=== PATIENT | female | born 1960 | race Caucasian/White ===

== ENCOUNTER 2020-06-26 14:29 | Outpatient (CLI) | payer MEDICARE, SELFPAY ==
--- NOTE | ~2020-06-26 | MM_ITS ---
EXAMINATION: MM screening [facility] BI w christal HISTORY: Screening mammogram TECHNIQUE: Craniocaudal and mediolateral oblique 3-D tomosynthesis images were obtained and synthetic 2-D images were generated. CAD analysis was submitted and interpreted. COMPARISON: 05/17/2019, 08/26/2017, 05/30/2016 bilateral digital screening mammogram examinations BREAST PARENCHYMAL COMPOSITION: The breasts are almost entirely fatty. FINDINGS: There is no evidence of suspicious mass, calcification, or architectural distortion to sugg est malignancy in either breast. There has been no suspicious interval change. IMPRESSION: 1. No mammographic evidence of malignancy. 2. Recommend routine screening mammography in one year. BI-RADS Category 1: Negative Reviewed, dictated and finalized at location B.
== END 2020-06-26 14:30 | disposition home or self-care (01) ==
LOC: ANHIMG 14:32
PROVIDERS: PCP Family Medicine; Visit Provider Family Medicine
DX: Z12.31 Encounter for screening mammogram for malignant neoplasm of breast (principal)
CPT/HCPCS: 77063; 77067

== ENCOUNTER 2020-10-08 00:47 | Outpatient (CLI) | payer MEDICARE, SELFPAY ==
[2020-10-08 19:06] LABS: SARS-CoV-2 RNA PCR Negative
== END 2020-10-08 00:48 | disposition home or self-care (01) ==
LOC: ANHCOVIDDT 00:47
PROVIDERS: PCP Physician Assistant; Visit Provider Internal Medicine Critical Care Medicine
DX: Z20.822 Contact with and (suspected) exposure to COVID-19 (principal)
CPT/HCPCS: C9803; U0003

== ENCOUNTER 2020-10-10 08:40 | Outpatient (CLI) | payer MEDICARE, SELFPAY ==
--- NOTE | 2020-10-29 10:42 | WPDSLEEPSTUD ---
Sleep Study Date of Study: 10/10/20 Ordering Provider: Reese Ceron PA-C Interpreting Physician: Jailyn Rios MD Sleep Study Type: CPAP Titration Height: 1.63 m Weight: 120.202 kg Body Mass Index: 45.4 Neck Circumference: 38.1 cm [place]: 4 Reason for Sleep Study GENEVA, on CPAP, increased symptoms; presents for retitration Prior sleep studies: * October 23, 2011; CPAP titration optimal pressure 11 cm * October 13, 2011; overnight polysomnogram wwith mild obstructive sleep apnea, AHI 12.8 with evidence of REM predominant and supine predominant events, moderate to heavy snoring, oxygen desaturation to 73%. Sleep History Amberly Thomas is a 60 yo female with obstructive sleep apnea, on CPAP For the last several years. She has good compliance. Her AHI is low, she reports that is 1.7 on her CPAP screen. She rarely awakens at night with heartburn, belching or coughing. She does not awaken from sleep feeling short of breath. She occasionally has trouble sleeping with a cold. She never wakes up gasping for breath at night while wearing CPAP. She occasionally has breathing problems at night observed by others, occasionally sweats excessively at night and occasionally notices her heart pounding or beating irregularly night. She never falls asleep during the day, involuntarily, while driving or while exerting physical effort. She does not have loss of muscle tone with strong emotion. She does not have difficulty during the daytime due to Excessive daytime sleepiness. She is disabled. She does not feel paralyzed when waking or falling asleep. She occasionally has vivid dreamlike scenes upon awakening or falling asleep. She is never a freight to go to sleep. She rarely has nightmares. She frequently remembers her dreams, frequently has racing thoughts, occasionally has feelings of sadness depression and anxiety. She rarely has muscular tension or notice parts of her body jerking. She never kicks at night. She rarely has probably aching feelings in her legs. She occasionally has leg pain during the night. She rarely has morning jaw pain. She rarely grinds her teeth during sleep. She constantly is bothered by pain during the day, occasionally awakens with pain at night. She constantly wakes up feeling stiff in the morning with sore achy muscles and pain in the neck and spine. She takes sedatives. Normal bedtime is 1:00 a.m. falling asleep within 30 minutes but sometimes it takes up to 2 hours to fall asleep. She typically wakes during the night 2-4 times to use the bathroom. She stays awake between 15 minutes and 2 hours. She wakes the morning between 9 and 10:00 a.m.. Weekend schedule is the same. She does not take naps. She feels better in the afternoon compared to other times of day. Habits: quit tobacco 4 months ago. Caffeine 2 cups in the morning. Alcohol 4 times year. [facility] Past Medical History Medical History (Updated 10/29/20 @ 11:20 by Jailyn Rios MD) Chronic back pain COPD (chronic obstructive pulmonary disease) MATT (generalized anxiety disorder) GERD (gastroesophageal reflux disease) Hyperlipidemia Hypertension Obstructive sleep apnea Psoriasis Psoriatic arthritis Type 2 diabetes mellitus with hyperglycemia Surgical History Surgical History History of hip replacement, total History of knee replacement Family History Family History Mother Family history of thyroid disease Diabetes mellitus Hypertension Family history of cardiovascular disease Acute myocardial infarction Cerebrovascular accident Family history of arthritis Grandparent Family history of eczema Family history of psoriasis Father Patient's father is Family history of lymphoma Other Family history of alcoholism Family history of malignant neoplasm Family history of osteoarthritis Social History Soc
[2020-10-29 11:33] VITALS: BMI 45.4
== END 2020-10-10 08:41 | disposition home or self-care (01) ==
LOC: ANHCSM 08:41
PROVIDERS: PCP Physician Assistant; Visit Provider Physician Assistant
DX: G47.33 Obstructive sleep apnea (adult) (pediatric) (principal); Z99.89 Dependence on other enabling machines and devices
CPT/HCPCS: 95811

== ENCOUNTER 2021-07-01 15:10 | Outpatient (CLI) | payer MEDICARE, SELFPAY ==
--- NOTE | ~2021-07-01 | MM_ITS ---
EXAMINATION: MM screening [facility] BI w christal HISTORY: Screening mammogram TECHNIQUE: Craniocaudal and mediolateral oblique 3-D tomosynthesis images were obtained and synthetic 2-D images were generated. CAD analysis was submitted and interpreted. COMPARISON: 06/26/2020, 05/17/2019, 08/26/2017 BREAST PARENCHYMAL COMPOSITION: The breasts are almost entirely fatty. FINDINGS: There is no evidence of suspicious mass, calcification, or architectural distortion to sugg est malignancy in either breast. There has been no suspicious interval change. IMPRESSION: 1. No mammographic evidence of malignancy. 2. Recommend routine screening mammography in one year. BI-RADS Category 1: Negative Reviewed, dictated and finalized at location A.
== END 2021-07-01 15:11 | disposition home or self-care (01) ==
LOC: ANHIMG 15:11
PROVIDERS: PCP Family Medicine; Visit Provider Family Medicine
DX: Z12.31 Encounter for screening mammogram for malignant neoplasm of breast (principal)
CPT/HCPCS: 77063; 77067

== ENCOUNTER 2022-01-15 14:41 | Outpatient (CLI) | payer MEDICARE, SELFPAY ==
--- NOTE | ~2022-01-15 | DEXA_ITS ---
Bone Density Report Name: VIRAL VÁZQUEZ Age: 61 Sex: Female Ethnicity: White Date of : 1960 Indication: postmenopausal; screening for osteoporosis; height loss; Referring Provider: GIOVANNI NARAYAN Study: Bone densitometry was performed. Exam Date: January 15, 2022 Accession number: [id number] Bone Density: Region BMD T-score Z-score Classification AP Spine(L1-L4) 0.964 -0.8 0.9 Normal Femoral Neck (Left) 0.846 0.0 1.4 Normal Total Hip (Left) 0.875 -0.5 0.6 Normal World Health Organization criteria for BMD impression classify patients as: Normal (T-score at or above -1.0), Osteopenia (T-score between -1.0 and -2.5), or Osteoporosis (T-score at or below -2.5). 10-year Fracture Risk: FRAX not reported because: All T-scores for Spine Total, Hip Total, Femoral Neck at or above -1.0 Clinical Information Provided by Patient: Has used the following medications: Vitamin D Patient maximum height was 64 Menopause Age: 51 No regular weight bearing exercise Onset of menses at age 11 Number of children 2 Impression: The patient has normal bone mass. Discussion: BONE DENSITY IS ABOVE THE MINIMUM DESIRABLE LEVEL AT ALL SKELETAL SITES TESTED. This patient?s bone mineral density is above the minimum desirable level (T-score -1.0 or better) at all sites measured. The patient should follow a healthful lifestyle (good nutrition with adequate calcium and vitamin D, and appropriate weight-bearing exercise). Follow-Up: Consider repeating this study in 5 years or sooner if there is some new clinical indication. Reported by: JENY on 01/15/2022 3:00:00 PM. Reviewed, dictated and finalized at location Rob PARKER
== END 2022-01-15 14:42 | disposition home or self-care (01) ==
LOC: ANHIMG 14:42
PROVIDERS: PCP Family Medicine; Visit Provider Physician Assistant
DX: Z78.0 Asymptomatic menopausal state (principal)
CPT/HCPCS: 77080

== ENCOUNTER 2022-06-23 00:32 | Day surgery (SDC) | payer MEDICARE, SELFPAY ==
[2022-06-05 13:04] VITALS: BMI 51.5
[2022-06-23 06:26] VITALS: BP 162/69; PULSE 68; RESP 17; TEMP 35.9; O2SAT 99; BMI 48.5
[2022-06-23] MEDS: LACTATED RINGERS 1,000 ML 150 ML IV CONT (06:37)
--- NOTE | 2022-06-23 06:39 | WPDANESEPPF ---
Anes - Initial Pre Proc Eval Procedure: Operation Date: 06/23/22 07:30 Proposed Procedures p Screening Colonoscopy - Nii Martins MD Date/Time: 06/23/22 06:39 Surgeon: Nii Martins MD Pre Op Diagnosis: hx of colon polyps Patient Data Age: 62 Gender: F Height: 1.6 m Weight: 124.3 kg Last Vital Signs Temp 35.9 C L 06/23/22 06:26 Pulse 68 06/23/22 06:26 Resp 17 06/23/22 06:26 BP 162/69 H 06/23/22 06:26 Pulse Ox 99 06/23/22 06:26 O2 Del Method Room Air 06/23/22 06:26 Allergies Allergy/AdvReac Type Severity Reaction Status Date / Time ibuprofen Allergy Severe exaccerbates Verified 06/23/22 06:22 psoriasis flurbiprofen Allergy Unknown ULCER Verified 06/23/22 06:22 NSAIDS (Non-Steroidal Allergy Unknown Unknown Verified 06/23/22 06:22 Anti-Inflamma Penicillins Allergy Unknown Unknown Verified 06/23/22 06:22 Home Medications Medication Instructions Recorded Confirmed Type betamethasone dipropionate 0.05 % 1 applic topical DAILY 08/24/19 06/23/22 History topical cream calcipotriene 0.005 % topical cream 1 applic topical BID 08/24/19 06/23/22 History clobetasol 0.05 % scalp solution 1 applic topical QAM AND QPM 08/24/19 06/23/22 History apple cider vinegar 300 mg tablet 300 mg PO DAILY 08/30/19 06/23/22 History glucosamine-chondroitin 250 mg-200 2 tablet PO DAILY 08/30/19 06/23/22 History mg tablet (Osteo Bi-Flex) multivitamin (Daily Multi-Vitamin 1 tablet PO DAILY 08/30/19 06/23/22 History tablet) folic acid 1 mg tablet 1 mg PO DAILY 03/22/21 06/23/22 History ezetimibe 10 mg tablet 10 mg PO DAILY #90 tabs 05/15/21 06/23/22 Rx guselkumab 100 mg/mL subcutaneous 100 mg subcut DIRECTED 09/04/21 06/23/22 History auto-injector (Tremfya) methotrexate sodium 2.5 mg tablet 15 mg PO WEEKLY 09/04/21 06/23/22 History metformin 500 mg tablet,extended 2,000 mg PO DAILY #360 tabs 12/26/21 06/23/22 Rx release 24 hr montelukast 10 mg tablet 10 mg PO DAILY #90 tabs 02/11/22 06/23/22 Rx simvastatin 40 mg tablet 40 mg PO DAILY #90 tabs 02/11/22 06/23/22 Rx lancets 30 gauge (2-In-1 Lancet #200 ea 03/10/22 06/23/22 Rx Device) blood sugar diagnostic (Blood #100 ea 03/11/22 06/23/22 Rx Glucose Test strips) blood-glucose meter (Smart Medical Systemsuch #1 ea 03/11/22 06/23/22 Rx Ultra2 Meter kit) lorazepam 0.5 mg tablet 0.5 mg PO Q8H PRN anxiety #60 tabs 04/22/22 06/23/22 Rx baclofen 10 mg tablet See Rx Instructions PO TID PRN 05/05/22 06/23/22 Rx muscle spasm #270 tabs esomeprazole magnesium 40 mg 40 mg PO BID #60 caps 05/12/22 06/23/22 Rx capsule,delayed release (Nexium) hydrocodone 7.5 mg-acetaminophen 1 tablet PO Q6H PRN pain #120 tabs 06/12/22 06/23/22 Rx 325 mg tablet Patient hx anesthesia problems: none Family hx anesthesia problems: none Results Review: All pre-operative results and documents have been reviewed as part of the pre-operative evaluation. [facility] Past Medical History Medical History Chronic back pain COPD (chronic obstructive pulmonary disease) MATT (generalized anxiety disorder) GERD (gastroesophageal reflux disease) Hyperlipidemia Hypertension Low back pain Obstructive sleep apnea Psoriasis Psoriatic arthritis Type 2 diabetes mellitus with hyperglycemia Surgical History Surgical History History of hip replacement, total History of knee replacement Family History Family History Mother Family history of thyroid disease Diabetes mellitus Hypertension Family history of cardiovascular disease Acute myocardial infarction Cerebrovascular accident Family history of arthritis Grandparent Family history of eczema Family history of psoriasis Father Patient's father is Family history of lymphoma Other Family history of alcoholism Family
[2022-06-23 06:46] LABS: Glucose Point of Care 124 mg/dl (65-105)
--- NOTE | 2022-06-23 07:26 | PM.HPGS ---
History of Present Illness History of Present Illness Consent: Risks, benefits, and alternatives have been discussed and questions answered. Patient agrees to proceed with procedure. Chief complaint: hx of colon polyps Narrative: Amberly Thomas is a 62 year old female with colon polyps 3 years ago Review of Systems Constitutional: Constitutional: Denies headache(s) and Denies weakness Eyes: Eyes: Denies blurry vision ENT: Reports Normal hearing present, Denies headache(s) and Denies neck pain Cardiovascular: Cardiovascular: Denies chest pain and Denies dyspnea Respiratory: Respiratory: Denies dyspnea Gastrointestinal: Gastrointestinal: Reports no additional gastrointestinal complaints Genitourinary: Genitourinary: Denies dysuria Musculoskeletal: Musculoskeletal: Denies neck pain Integumentary/Breasts: Skin/Breast: Denies dry skin Neurologic: Reports Normal hearing present, Denies headache(s) and Denies weakness Psychiatric: Psychiatric: Denies anxiety Endocrine: Endocrine: Denies change in body appearance Hematologic/Lymphatic: Hematologic/Lymphatic: Denies easy bleeding Allergic/Immunologic: Allergic/Immunologic: Denies urticaria PMFSH Past Medical History Medical History Chronic back pain COPD (chronic obstructive pulmonary disease) MATT (generalized anxiety disorder) GERD (gastroesophageal reflux disease) Hyperlipidemia Hypertension Low back pain Obstructive sleep apnea Psoriasis Psoriatic arthritis Type 2 diabetes mellitus with hyperglycemia Surgical History Surgical History History of hip replacement, total History of knee replacement Family History Family History Mother Family history of thyroid disease Diabetes mellitus Hypertension Family history of cardiovascular disease Acute myocardial infarction Cerebrovascular accident Family history of arthritis Grandparent Family history of eczema Family history of psoriasis Father Patient's father is Family history of lymphoma Other Family history of alcoholism Family history of malignant neoplasm Family history of osteoarthritis Social History Social History Years smoked: 45 Smoking status: Former smoker Tobacco type: cigarettes Second hand tobacco smoke exposure: No Alcohol intake: current Alcohol use details: occasionally Substance use: never Substance use type: does not use Living arrangements: with family Gender identity (if verbalized by the patient): Female Spiritual care concerns: No Meds Home Medications and Allergies Home Medications Medication Instructions Recorded Confirmed Type betamethasone dipropionate 0.05 % 1 applic topical DAILY 08/24/19 06/23/22 History topical cream calcipotriene 0.005 % topical cream 1 applic topical BID 08/24/19 06/23/22 History clobetasol 0.05 % scalp solution 1 applic topical QAM AND QPM 08/24/19 06/23/22 History apple cider vinegar 300 mg tablet 300 mg PO DAILY 08/30/19 06/23/22 History glucosamine-chondroitin 250 mg-200 2 tablet PO DAILY 08/30/19 06/23/22 History mg tablet (Osteo Bi-Flex) multivitamin (Daily Multi-Vitamin 1 tablet PO DAILY 08/30/19 06/23/22 History tablet) folic acid 1 mg tablet 1 mg PO DAILY 03/22/21 06/23/22 History ezetimibe 10 mg tablet 10 mg PO DAILY #90 tabs 05/15/21 06/23/22 Rx guselkumab 100 mg/mL subcutaneous 100 mg subcut DIRECTED 09/04/21 06/23/22 History auto-injector (Tremfya) methotrexate sodium 2.5 mg tablet 15 mg PO WEEKLY 09/04/21 06/23/22 History metformin 500 mg tablet,extended 2,000 mg PO DAILY #360 tabs 12/26/21 06/23/22 Rx release 24 hr montelukast 10 mg tablet 10 mg PO DAILY #90 tabs 02/11/22 06/23/22 Rx simvastatin 40 mg tablet 40 mg PO DAILY #90 tabs 02/11/22
[2022-06-23 08:01] VITALS: BP 115/64; PULSE 58; RESP 20; O2SAT 94
[2022-06-23 08:11] VITALS: BP 106/50; PULSE 59; RESP 25; O2SAT 100
[2022-06-23 08:21] VITALS: BP 111/69; PULSE 63; RESP 26; O2SAT 100
== END 2022-06-23 08:41 | disposition home or self-care (01) ==
PROVIDERS: PCP Family Medicine; Visit Provider Internal Medicine Gastroenterology
PROC: 0DJD8ZZ Inspection of Lower Intestinal Tract, Via Natural or Artificial Opening Endoscopic (ICD-10-PCS; CPT 45378; principal; 2022-06-23 07:30)
DX: Z12.11 Encounter for screening for malignant neoplasm of colon (principal); K63.5 Polyp of colon; K57.30 Diverticulosis of large intestine without perforation or abscess without bleeding; J44.9 Chronic obstructive pulmonary disease, unspecified; F41.1 Generalized anxiety disorder; I10 Essential (primary) hypertension; E78.5 Hyperlipidemia, unspecified; G47.33 Obstructive sleep apnea (adult) (pediatric); E11.9 Type 2 diabetes mellitus without complications; L40.50 Arthropathic psoriasis, unspecified; Z87.891 Personal history of nicotine dependence; Z79.84 Long term (current) use of oral hypoglycemic drugs; E66.01 Morbid (severe) obesity due to excess calories; Z68.42 Body mass index [BMI] 45.0-49.9, adult
CPT/HCPCS: 45385; 82948; 88305; J2704; J7120

== ENCOUNTER 2022-07-30 10:40 | Outpatient (CLI) | payer MEDICARE, SELFPAY ==
--- NOTE | ~2022-07-30 | MM_ITS ---
EXAMINATION: MM screening ericka BI w christal HISTORY: Screening TECHNIQUE: Craniocaudal and mediolateral oblique 3-D tomosynthesis images were obtained and synthetic 2-D images were generated. CAD analysis was submitted and interpreted. COMPARISON: Comparison to multiple prior studies sequentially, with oldest reviewed study dated 06/29. BREAST PARENCHYMAL COMPOSITION: The breasts are almost entirely fatty. FINDINGS: There is no evidence of suspicious mass, calcification, or architectural distortion to sugg est malignancy in either breast. There has been no suspicious interval change. IMPRESSION: 1. No mammographic evidence of malignancy. 2. Recommend routine screening mammography in one year. BI-RADS Category 1: Negative Reviewed, dictated and finalized at location A.
== END 2022-07-30 10:41 | disposition home or self-care (01) ==
PROVIDERS: PCP Family Medicine; Visit Provider Family Medicine
DX: Z12.31 Encounter for screening mammogram for malignant neoplasm of breast (principal)
CPT/HCPCS: 77063; 77067

== ENCOUNTER 2022-12-09 15:13 | Outpatient (CLI) | payer MEDICARE, SELFPAY ==
--- NOTE | ~2022-12-09 | XR_ITS ---
Lumbosacral Spine: AP, oblique, and lateral views Clinical History: Pain Findings: The normal lordotic curve is maintained. No fracture or subluxation evident. There is mild degenerative disc change at L3-L4 and L4-L5. Facet arthropathy present from L3 through S1. The sacroi liac joints are normally outlined. Impression: Mild degenerative spondylosis, as above. Reviewed, dictated and finalized at location . Impression: Mild degenerative spondylosis, as above.
[2022-12-09 15:56] LABS: Anion Gap 10 mmol/L (8-16); Blood Urea Nitrogen 14 mg/dL (7-18); Calcium 9.4 mg/dL (8.5-10.1); Carbon Dioxide 28 mmol/L (21-32); Chloride 104 mmol/L (98-108); Estimated Glomerular Filt Rate > 60; Glucose 140 mg/dL (70-99); Osmolality Calculated 296 mOsm/kg (285-295); Potassium 5.1 mmol/L (3.5-5.1); Sodium 142 mmol/L (136-145)
== END 2022-12-09 15:14 | disposition home or self-care (01) ==
LOC: CHSLAB 15:16
PROVIDERS: PCP Family Medicine; Visit Provider Anesthesiology
DX: Z01.818 Encounter for other preprocedural examination (principal); M54.50 Low back pain, unspecified; E11.65 Type 2 diabetes mellitus with hyperglycemia; M43.06 Spondylolysis, lumbar region
CPT/HCPCS: 36415; 72110; 80048

== ENCOUNTER 2022-12-22 00:33 | Day surgery (SDC) | payer MEDICARE, SELFPAY ==
[2022-12-08 13:15] VITALS: BMI 46.0
--- NOTE | 2022-12-08 13:20 | PC.NURSE ---
Report to the Outpatient Waiting Room, entrance under the green pavilion located off [facility], at time 12:00 on date 12/22/22. Planned Procedure Time: 2:00. Time changes happen often and if your time is changed the preop area will call you the afternoon before. - You and your visitor will be asked to self-screen and do not enter if you have any COVID symptoms. - Only one visitor is requested with a max of two and NO children visitors are allowed at this time. - The patient visitor may be requested to leave or wait in car when not with patient due to distancing restrictions. - A mask is optional within the hospital at this time. Patients may have clear liquids (water, carbonated beverages, clear teas, apple juice) until 3 hours prior to surgery with a maximum of 20 ounces. - No food from midnight until time of surgery Take the following medications with a SIP of water the morning of surgery: LORAZEPAM, PAIN PILL IF NEEDED DO NOT STOP ANY OF YOUR OTHER PRESCRIPTION MEDICATIONS PRIOR TO SURGERY?EXCEPT THE FOLLOWING Medications to discontinue per physician: VITAMINS/SUPPLEMENTS Date to take last dose: 12/18/22 Please no make-up, nail [place], hairspray, perfume, deodorant, or body powder the day of surgery. No jewelry (including any body piercings) or valuables the day of surgery, leave them at home. Please take a shower or bath the night before, or the morning of, surgery with an antibacterial soap. Wear comfortable, loose fitting clothing. - Jewelry must be removed prior to entering the operating room. Rings and piercings that are not removed may be cut off. - The hospital will not accept responsibility for valuables. - Please leave all valuables, including medications, at home the day of surgery. If you are going home after surgery, a licensed auto [place] driver must drive you home. - NO public transportation without another adult if you receive anesthesia. - We recommend that an adult stay with you for 24 hours following discharge. - We also recommend that you do not drive, make important decision, drink alcoholic beverages, or take any drugs that were not prescribed by your health care provider for at least 24 hours after your discharge time. Follow any additional instructions given to you from your surgeon. If you or anyone in your household have experienced Covid symptoms in the past week, please notify your surgeon or the nurse liaison at the phone number below for possible testing. Telephone instructions given to ADENIKE VÁZQUEZ and asked if any additional questions and then verbalized understanding. Patient advised to call surgeon office or pre surgery nurse liaison [phone] if any additional questions.
--- NOTE | 2022-12-20 13:27 | PM.IMHP ---
H&P: HPI History of Present Illness Date/Time: 12/20/22 13:27 Chief Complaint: VICKEY Narrative: stress incontinence due to ISD. Has OAB as well. Desires surgical correction for VICKEY/ISD Review of Systems Review of Systems: All systems reviewed & are unremarkable except as noted in HPI and below PMFSH Past Medical History Medical History Chronic back pain COPD (chronic obstructive pulmonary disease) MATT (generalized anxiety disorder) GERD (gastroesophageal reflux disease) Hyperlipidemia Hypertension Low back pain Obstructive sleep apnea Psoriasis Psoriatic arthritis Tobacco abuse Type 2 diabetes mellitus with hyperglycemia Urinary incontinence Surgical History Surgical History History of hip replacement, total History of knee replacement Family History Family History Mother Family history of thyroid disease Diabetes mellitus Hypertension Family history of cardiovascular disease Acute myocardial infarction Cerebrovascular accident Family history of arthritis Grandparent Family history of eczema Family history of psoriasis Father Patient's father is Family history of lymphoma Other Family history of alcoholism Family history of malignant neoplasm Family history of osteoarthritis Social History Social History Smoking packs per day: 1 Smoking cigarettes per day: 20.0 Years smoked: 50 Smoking pack-years: 50.00 Smoking status: Former smoker Tobacco type: cigarettes Second hand tobacco smoke exposure: No Smoking end date: 09/28/17 Alcohol intake: current Alcohol use details: 1/MONTH Substance use: never Substance use type: does not use Lack of Transportation: No Lack of Food: Never True Current Housing: I Have Housing Concerned About Future Housing: No Difficulty Paying Gas/Electric Bills: No Difficulty Paying for Meds: No Currently Unemployed: No Education: High School Diploma/GED Difficulty w/ Childcare or Family Care: No Living arrangements: with family Occupation/Education: retired Gender identity (if verbalized by the patient): Female Sexual Orientation (if Verbalized by the Patient): Straight or Heterosexual Spiritual care concerns: No Agree to blood products: Yes Meds Home Medications and Allergies Home Medications Medication Instructions Recorded Confirmed Type betamethasone dipropionate 0.05 % 1 applic topical DAILY 08/24/19 12/08/22 History topical cream calcipotriene 0.005 % topical cream 1 applic topical BID 08/24/19 12/08/22 History clobetasol 0.05 % scalp solution 1 applic topical QAM AND QPM 08/24/19 12/08/22 History apple cider vinegar 300 mg tablet 300 mg PO DAILY 08/30/19 12/08/22 History glucosamine-chondroitin 250 mg-200 2 tablet PO DAILY 08/30/19 12/08/22 History mg tablet (Osteo Bi-Flex) multivitamin (Daily Multi-Vitamin 1 tablet PO DAILY 08/30/19 12/08/22 History tablet) folic acid 1 mg tablet 1 mg PO DAILY 03/22/21 12/08/22 History guselkumab 100 mg/mL subcutaneous 100 mg subcut DIRECTED 09/04/21 12/08/22 History auto-injector (Tremfya) methotrexate sodium 2.5 mg tablet 15 mg PO WEEKLY 09/04/21 12/08/22 History metformin 500 mg tablet,extended 2,000 mg PO DAILY #360 tabs 12/26/21 12/08/22 Rx release 24 hr montelukast 10 mg tablet 10 mg PO DAILY #90 tabs 02/11/22 12/08/22 Rx simvastatin 40 mg tablet 40 mg PO DAILY #90 tabs 02/11/22 12/08/22 Rx lancets 30 gauge (2-In-1 Lancet #200 ea 03/10/22 07/24/22 Rx Device) blood sugar diagnostic (Blood #100 ea 03/11/22 07/24/22 Rx Glucose Test strips) blood-glucose meter (OneTouch #1 ea 03/11/22 07/24/22 Rx Ultra2 Meter kit) furosemide 20 mg tablet 20 mg PO QAM PRN edema #30 tabs 07/18/22 12/08/22 Rx mupiroci
--- NOTE | 2022-12-22 07:14 | WPDHPUPDATE1 ---
History and Physical Update Update Date/Time: 12/22/22 07:14 History and Physical has been reviewed, including an updated exam of the patient. There are NO changes in the patient's condition. Risks, benefits, and alternatives have been discussed and questions answered. Patient agrees to proceed with procedure.
--- NOTE | 2022-12-22 07:53 | WPDANESEPPF ---
Anes - Initial Pre Proc Eval Procedure: Operation Date: 12/22/22 14:00 Proposed Procedures p Cystoscopy with Bulking Agent - Jeff Moon MD Date/Time: 12/22/22 07:53 Surgeon: Jeff Moon MD Pre Op Diagnosis: Intrinsic Sphincter Def Patient Data Age: 62 Gender: F Height: 1.6 m Weight: 117.95 kg Allergies Allergy/AdvReac Type Severity Reaction Status Date / Time ibuprofen Allergy Severe exaccerbates Verified 12/22/22 11:46 psoriasis flurbiprofen Allergy Unknown ULCER Verified 12/22/22 11:46 NSAIDS (Non-Steroidal Allergy Unknown Unknown Verified 12/22/22 11:46 Anti-Inflamma Penicillins Allergy Unknown Unknown Verified 12/22/22 11:46 Home Medications Medication Instructions Recorded Confirmed Type betamethasone dipropionate 0.05 % 1 applic topical DAILY 08/24/19 12/22/22 History topical cream calcipotriene 0.005 % topical cream 1 applic topical BID 08/24/19 12/22/22 History clobetasol 0.05 % scalp solution 1 applic topical QAM AND QPM 08/24/19 12/22/22 History apple cider vinegar 300 mg tablet 300 mg PO DAILY 08/30/19 12/22/22 History glucosamine-chondroitin 250 mg-200 2 tablet PO DAILY 08/30/19 12/22/22 History mg tablet (Osteo Bi-Flex) multivitamin (Daily Multi-Vitamin 1 tablet PO DAILY 08/30/19 12/22/22 History tablet) folic acid 1 mg tablet 1 mg PO DAILY 03/22/21 12/22/22 History guselkumab 100 mg/mL subcutaneous 100 mg subcut DIRECTED 09/04/21 12/22/22 History auto-injector (Tremfya) methotrexate sodium 2.5 mg tablet 15 mg PO WEEKLY 09/04/21 12/22/22 History metformin 500 mg tablet,extended 2,000 mg PO DAILY #360 tabs 12/26/21 12/22/22 Rx release 24 hr montelukast 10 mg tablet 10 mg PO DAILY #90 tabs 02/11/22 12/22/22 Rx simvastatin 40 mg tablet 40 mg PO DAILY #90 tabs 02/11/22 12/22/22 Rx lancets 30 gauge (2-In-1 Lancet #200 ea 03/10/22 12/22/22 Rx Device) blood sugar diagnostic (Blood #100 ea 03/11/22 12/22/22 Rx Glucose Test strips) blood-glucose meter (OneTouch #1 ea 03/11/22 12/22/22 Rx Ultra2 Meter kit) furosemide 20 mg tablet 20 mg PO QAM PRN edema #30 tabs 07/18/22 12/22/22 Rx mupirocin 2 % topical ointment 1 applic topical TID #22 grams 07/30/22 12/22/22 Rx lorazepam 0.5 mg tablet 0.5 mg PO Q8H PRN anxiety #60 tabs 10/15/22 12/22/22 Rx esomeprazole magnesium 40 mg 40 mg PO DAILY #90 caps 11/06/22 12/22/22 Rx capsule,delayed release (Nexium) ezetimibe 10 mg tablet 10 mg PO DAILY #90 tabs 11/06/22 12/22/22 Rx baclofen 10 mg tablet See Rx Instructions PO TID PRN 11/12/22 12/22/22 Rx muscle spasm #270 tabs ascorbic acid (vitamin C) 500 mg 500 mg PO DAILY 12/08/22 12/22/22 History tablet (Vitamin C) cholecalciferol (vitamin D3) 125 125 mcg PO DAILY 12/08/22 12/22/22 History mcg (5,000 unit) tablet (Vitamin D3) hydrocodone 7.5 mg-acetaminophen 1 tablet PO Q6H PRN pain #120 tabs 12/08/22 12/22/22 Rx 325 mg tablet mecobalamin (vitamin B12) 1,000 1,000 mcg PO DAILY 12/08/22 12/22/22 History mcg chewable tablet (B12 Active) omega 5-igb-otu-fish oil 1,000 mg 1 cap PO DAILY 12/08/22 12/22/22 History (120 mg-180 mg) capsule (Fish Oil) Patient hx anesthesia problems: none Family hx anesthesia problems: none Results Review: All pre-operative results and documents have been reviewed as part of the pre-operative evaluation. [facility] Past Medical History Medical History (Updated 12/22/22 @ 07:55 by Michael Pena MD) Chronic back pain Chronic narcotic use COPD (chronic obstructive pulmonary disease) MATT (generalized anxiety disorder) Gastroesophageal reflux disease GERD (gastroesophageal reflux disease) Hyperlipidemia Hypertension Low back pain Morbid obesity with BMI of 45.0-49.9, adult Obstructive sleep apnea GENEVA on CPAP Osteoarthritis of multiple joints Psoriasis Psoriatic arthritis Psoriatic arthritis Tobacco abuse Type 2 diabetes mellitus with hyperglycemia Urinary incontinence Surgical History Surgic
[2022-12-22 11:39] VITALS: BP 147/82; PULSE 80; RESP 20; TEMP 36; O2SAT 97
[2022-12-22] MEDS: LACTATED RINGERS 1,000 ML 30 ML IV CONT (12:00)
[2022-12-22 12:04] LABS: Glucose Point of Care 125 mg/dl (65-105)
[2022-12-22] MEDS: ceFAZolin 3 GM/D5W 100 ML 100 ML IVPB (14:00)
[2022-12-22] MEDS: LIDOCAINE HCL 2% GEL UROJET 10 ML PKG MUCOUS MEM (14:19)
--- NOTE | 2022-12-22 14:23 | W.PM.PROC2 ---
Procedure Note - Detailed Date of Procedure 12/22/22 Pre-op Diagnosis Intrinsic Sphincter deficiency Post-op Diagnosis Same Procedure Performed cystoscopy with suburethral injection of implant material Surgeon Jeff Moon MD Anesthesia MAC and Local Findings open urethra consistent with intrinsic sphincter deficiency Description of Procedure she was correctly identified. Informed consent obtained. She from the operating room. She was given MAC anesthesia. She was prepped and draped in a sterile fashion. A time-out performed. Uro jet was applied. Cystoscopy revealed a normal-appearing bladder. Ureteral orifices were normal. There is no tumors in the bladder. Urethra was open consistent with intrinsic sphincter deficiency. I injected my bulking agent circumferentially. I did this 2 cm distal bladder neck. There was excellent bulking effect. I used 1 syringe of material total. Her bladder was left partially full. She was awakened transferred to PACU in stable condition. Estimated Blood Loss 1 Complications No immediate complications Condition Stable
[2022-12-22 14:24] VITALS: BP 160/87; PULSE 66; RESP 14; O2SAT 100
[2022-12-22 14:30] LABS: Glucose Point of Care 109 mg/dl (65-105)
[2022-12-22 14:55] VITALS: BP 148/67; PULSE 68; RESP 16; O2SAT 100
[2022-12-22 15:25] VITALS: BP 141/59; PULSE 64; RESP 16
== END 2022-12-22 15:45 | disposition home or self-care (01) ==
PROVIDERS: PCP Family Medicine; Visit Provider Urology
PROC: 3E0K8GC Introduction of Other Therapeutic Substance into Genitourinary Tract, Via Natural or Artificial Opening Endoscopic (ICD-10-PCS; CPT 51715; principal; 2022-12-22 14:00)
DX: N36.42 Intrinsic sphincter deficiency (ISD) (principal); N39.3 Stress incontinence (female) (male); N32.81 Overactive bladder; J44.9 Chronic obstructive pulmonary disease, unspecified; F41.1 Generalized anxiety disorder; K21.9 Gastro-esophageal reflux disease without esophagitis; E78.5 Hyperlipidemia, unspecified; I10 Essential (primary) hypertension; G47.33 Obstructive sleep apnea (adult) (pediatric); L40.9 Psoriasis, unspecified; L40.50 Arthropathic psoriasis, unspecified; E11.9 Type 2 diabetes mellitus without complications; Z87.891 Personal history of nicotine dependence; Z79.84 Long term (current) use of oral hypoglycemic drugs; Z79.899 Other long term (current) drug therapy; Z79.891 Long term (current) use of opiate analgesic
CPT/HCPCS: 51715; 82948; J0690; J2250; J2704; J3010; J7120; L8606

== ENCOUNTER 2023-01-08 08:15 | Outpatient (CLI) | payer MEDICARE, SELFPAY ==
--- NOTE | ~2023-01-08 | MR_ITS ---
MRI of the lumbar spine Clinical History: Back pain Technique: Axial T2-weighted images, and sagittal T1-weighted, T2-weighted, and T2 fat-sat images wer e acquired. Findings: There is no fracture or subluxation of the lumbar spine. Vertebral bodies maintain normal h eight and alignment. No bone marrow signal abnormality seen. At L1-L2, there is no disc bulge or herniation. No spinal canal stenosis or neural foraminal narrowin g. At L2-L3, there is no disc bulge or herniation. There is mild facet joint arthropathy. No spinal luis enrique l stenosis or neural foraminal narrowing. At L3-L4, there is minimal disc bulge, with facet arthropathy. No spinal canal stenosis or neural for aminal narrowing. At L4-L5, there is facet arthropathy and minimal disc bulge. No central canal stenosis. There is mini mal left neural foraminal narrowing. Right neural foramen preserved. At L5-S1, there is mild diffuse disc bulge with facet arthropathy. No spinal canal stenosis. There is mild left neural foraminal narrowing. Right neural foramen preserved. Paravertebral soft tissues are unremarkable. Impression: Mild degenerative spondylosis, as above. Reviewed, dictated and finalized at location M. Impression: Mild degenerative spondylosis, as above.
[2023-01-12 12:02] LABS: NIL 0.01 IU/mL; Quantiferon TB Plus, 1T NEGATIVE (NEGATIVE)
== END 2023-01-08 08:16 | disposition home or self-care (01) ==
LOC: CHSIMG 08:18
PROVIDERS: PCP Family Medicine; Visit Provider Nurse Practitioner Family
DX: M54.59 Other low back pain (principal); M43.06 Spondylolysis, lumbar region
CPT/HCPCS: 36415; 72148; 86480

== ENCOUNTER 2023-07-14 11:13 | Outpatient (CLI) | payer MEDICARE, SELFPAY ==
[2023-07-14 11:25] LABS: Basophils Absolute Auto 0.01 K/mm3 (0.00-0.10); Basophils Percent Auto 0.1 % (0.0-1.0); Eosinophils Absolute Auto 0.12 K/mm3 (0.02-0.50); Eosinophils Percent Auto 1.6 % (1.0-6.0); Hematocrit 41.9 % (35.0-49.0); Hemoglobin 13.2 g/dL (12.0-15.0); Immature Granulocyte Absolute 0.07 K/mm3 (0.00-0.00); Immature Granulocyte Percent A 0.9 % (0.0-0.0); Lymphocytes Absolute Auto 1.75 K/mm3 (1.10-4.50); Lymphocytes Percent Auto 23.3 % (18.0-42.0); Mean Corpuscular HGB Conc 31.5 g/dL (32.0-36.0); Mean Corpuscular Hemoglobin 32.4 pg (27.0-31.0); Mean Corpuscular Volume 102.7 fL (78.0-102.0); Monocytes Absolute Auto 0.47 K/mm3 (0.10-0.90); Monocytes Percent Auto 6.3 % (2.0-11.0); Neutrophils Absolute Auto 5.1 K/mm3 (1.7-7.2); Neutrophils Percent Auto 67.8 % (50.0-70.0); Platelet Count Result 222 K/mm3 (150-420); Red Blood Count 4.08 M/mm3 (4.20-5.40); Red Cell Distribution Width 14.6 % (11.6-14.4); White Blood Count 7.5 K/mm3 (4.8-10.8)
[2023-07-14 12:18] LABS: Alanine Aminotransferase 19 U/L (14-59); Albumin Level 3.5 g/dL (3.4-5.0); Alkaline Phosphatase 100 U/L (46-116); Anion Gap 9 mmol/L (8-16); Aspartate Amino Transferase 19 U/L (15-37); Bilirubin,Total 0.5 mg/dL (0.00-1.00); Blood Urea Nitrogen 14 mg/dL (7-18); CRP 0.7 mg/dL (0.0-0.9); Calcium 9.7 mg/dL (8.5-10.1); Carbon Dioxide 29 mmol/L (21-32); Chloride 105 mmol/L (98-108); Estimated Glomerular Filt Rate > 60; Glucose 134 mg/dL (70-99); Osmolality Calculated 298 mOsm/kg (285-295); Potassium 4.6 mmol/L (3.5-5.1); Sodium 143 mmol/L (136-145); Total Protein 6.9 g/dL (6.4-8.2)
[2023-07-14 12:30] LABS: Erythrocyte Sedimentation Rate 13 mm/hr (0-20)
== END 2023-07-14 11:14 | disposition home or self-care (01) ==
LOC: CHSLAB 11:15
PROVIDERS: PCP Family Medicine; Visit Provider Internal Medicine Rheumatology
DX: Z79.899 Other long term (current) drug therapy (principal)
CPT/HCPCS: 36415; 80053; 85025; 85652; 86140

== ENCOUNTER 2023-08-17 13:51 | Outpatient (CLI) | payer MEDICARE, SELFPAY ==
--- NOTE | ~2023-08-17 | MM_ITS ---
EXAMINATION: MM screening [facility] BI w christal HISTORY: Screening mammogram TECHNIQUE: Craniocaudal and mediolateral oblique 3-D tomosynthesis images were obtained and synthetic 2-D images were generated. CAD analysis was submitted and interpreted. COMPARISON: 07/30/2022, 07/01/2021, 06/26/2020 bilateral screening mammogram examinations BREAST PARENCHYMAL COMPOSITION: The breasts are almost entirely fatty. FINDINGS: There is no evidence of suspicious mass, calcification, or architectural distortion to sugg est malignancy in either breast. There has been no suspicious interval change. IMPRESSION: 1. No mammographic evidence of malignancy. 2. Recommend routine screening mammography in one year. BI-RADS Category 1: Negative Reviewed, dictated and finalized at location A. OIDERY CUTTER
== END 2023-08-17 13:52 | disposition home or self-care (01) ==
LOC: CHSIMG 13:52
PROVIDERS: PCP Family Medicine; Visit Provider Family Medicine
DX: Z12.31 Encounter for screening mammogram for malignant neoplasm of breast (principal)
CPT/HCPCS: 77063; 77067

== ENCOUNTER 2023-12-31 11:35 | Outpatient (CLI) | payer MEDICARE, SELFPAY ==
[2023-12-31 11:57] LABS: Basophils Absolute Auto 0.03 K/mm3 (0.00-0.10); Basophils Percent Auto 0.3 % (0.0-1.0); Eosinophils Absolute Auto 0.11 K/mm3 (0.02-0.50); Eosinophils Percent Auto 1.2 % (1.0-6.0); Hematocrit 40.4 % (35.0-49.0); Hemoglobin 12.9 g/dL (12.0-15.0); Immature Granulocyte Absolute 0.04 K/mm3 (0.00-0.00); Immature Granulocyte Percent A 0.4 % (0.0-0.0); Lymphocytes Absolute Auto 1.91 K/mm3 (1.10-4.50); Lymphocytes Percent Auto 20.8 % (18.0-42.0); Mean Corpuscular HGB Conc 31.9 g/dL (32-36); Mean Corpuscular Hemoglobin 33.2 pg (27.0-31.0); Mean Corpuscular Volume 103.9 fL (78.0-102.0); Monocytes Absolute Auto 0.65 K/mm3 (0.10-0.90); Monocytes Percent Auto 7.1 % (2.0-11.0); Neutrophils Absolute Auto 6.46 K/mm3 (1.70-7.20); Neutrophils Percent Auto 70.2 % (50.0-70.0); Platelet Count Result 196 K/mm3 (150-420); Red Blood Count 3.89 M/mm3 (4.20-5.40); White Blood Count 9.2 K/mm3 (4.8-10.8)
[2023-12-31 12:42] LABS: Alanine Aminotransferase 41 U/L (14-59); Albumin Level 3.6 g/dL (3.4-5.0); Alkaline Phosphatase 85 U/L (46-116); Anion Gap 9 mmol/L (4-12); Aspartate Amino Transferase 31 U/L (15-37); Bilirubin,Total 0.8 mg/dL (0.00-1.00); Blood Urea Nitrogen 14 mg/dL (7-18); CRP 0.7 mg/dL (0.0-0.9); Calcium 9.4 mg/dL (8.5-10.1); Carbon Dioxide 30 mmol/L (21-32); Chloride 104 mmol/L (98-108); Estimated Glomerular Filt Rate > 60; Glucose 90 mg/dL (70-99); Osmolality Calculated 296 mOsm/kg (285-295); Potassium 4.8 mmol/L (3.5-5.1); Sodium 143 mmol/L (136-145); Total Protein 6.7 g/dL (6.4-8.2)
[2023-12-31 13:26] LABS: Erythrocyte Sedimentation Rate 32 mm/hr (0-20)
== END 2023-12-31 11:36 | disposition home or self-care (01) ==
LOC: CHSLAB 11:39
PROVIDERS: PCP Family Medicine; Visit Provider Internal Medicine Rheumatology
DX: L40.59 Other psoriatic arthropathy (principal); Z79.899 Other long term (current) drug therapy
CPT/HCPCS: 36415; 80053; 85025; 85652; 86140

== ENCOUNTER 2024-09-20 13:14 | Outpatient (CLI) | payer MEDICARE, SELFPAY ==
--- NOTE | ~2024-09-20 | MM_ITS ---
EXAMINATION: MM screening [facility] BI w christal HISTORY: Screening TECHNIQUE: Craniocaudal and mediolateral oblique 3-D tomosynthesis images were obtained and synthetic 2-D images were generated. CAD analysis was submitted and interpreted. COMPARISON: 08/17/2023 and dating back to 06/26/2020 BREAST PARENCHYMAL COMPOSITION: Not Dense. The breasts are almost entirely fatty. FINDINGS: Punctate calcifications detected bilaterally (left greater than right) stable and benign in appearance. Stable parenchymal pattern without suspicious microcalcifications, architectural distortion, discrete masses or significant asymmetry. IMPRESSION: 1. No mammographic evidence of malignancy. 2. Recommend routine screening mammography in one year. BI-RADS Category 2: Benign finding(s). Reviewed, dictated and finalized at location A. LIATE MARKETING SPECIALIST
== END 2024-09-20 13:15 | disposition home or self-care (01) ==
PROVIDERS: PCP Family Medicine; Visit Provider Family Medicine
DX: Z12.31 Encounter for screening mammogram for malignant neoplasm of breast (principal)
CPT/HCPCS: 77063; 77067

== ENCOUNTER 2024-11-24 12:11 | Outpatient (CLI) | payer MEDICARE, SELFPAY ==
[2024-11-24 12:25] LABS: Hematocrit 41.9 % (35.0-42.0); Hemoglobin 13.1 g/dL (11.7-13.8); Mean Corpuscular HGB Conc 31.3 g/dL (32-36); Mean Corpuscular Hemoglobin 32.9 pg (27.0-31.0); Mean Corpuscular Volume 105.3 fL (78.0-102.0); Mean Platelet Volume 11.2 fl (9.2-11.8); Platelet Count Result 218 K/mm3 (150-420); Red Blood Count 3.98 M/mm3 (4.20-5.40); Red Cell Distribution Width 14.6 % (11.6-14.4); White Blood Count 9.2 K/mm3 (4.8-10.8)
[2024-11-24 12:50] LABS: Hemoglobin A1C 5.5 % (<5.7)
[2024-11-24 13:13] LABS: Alanine Aminotransferase 27 U/L (14-59); Albumin Level 3.8 g/dL (3.4-5.0); Alkaline Phosphatase 99 U/L (46-116); Anion Gap 12 mmol/L (4-12); Aspartate Amino Transferase 17 U/L (15-37); Bilirubin,Total 0.7 mg/dL (0.00-1.00); Blood Urea Nitrogen 12 mg/dL (7-18); Calcium 9.6 mg/dL (8.5-10.1); Carbon Dioxide 28 mmol/L (21-32); Chloride 102 mmol/L (98-108); Cholesterol 158 mg/dL (0-200); Estimated Glomerular Filt Rate > 60; Glucose 108 mg/dL (70-99); HDL Direct 63 mg/dL (40-60); LDL Cholesterol Calculated 66 mg/dL (<130); Osmolality Calculated 294 mOsm/kg (285-295); Potassium 4.6 mmol/L (3.5-5.1); Sodium 142 mmol/L (136-145); Total Protein 6.9 g/dL (6.4-8.2); Triglycerides 145 mg/dL (0-150)
[2024-11-24 13:14] LABS: CRP < 0.5 mg/dL (0.0-0.9)
[2024-11-24 13:27] LABS: Erythrocyte Sedimentation Rate 30 mm/hr (0-20)
== END 2024-11-24 12:12 | disposition home or self-care (01) ==
LOC: CHSLAB 12:13
PROVIDERS: PCP Family Medicine; Visit Provider Internal Medicine Rheumatology
DX: E78.2 Mixed hyperlipidemia (principal); E11.9 Type 2 diabetes mellitus without complications
CPT/HCPCS: 36415; 80053; 80061; 83036; 85027; 85652; 86140

== ENCOUNTER 2025-07-20 15:16 | Outpatient (CLI) | payer MEDICARE, SELFPAY ==
--- NOTE | ~2025-07-20 | MM_ITS ---
EXAMINATION: screening [facility] BI w christal INDICATION: Asymptomatic, referred for screening mammogram COMPARISON: 09/20/2024 through 06/26/2020 TECHNIQUE: Digital Breast Tomosynthesis CC, MLO views of Both breasts were obtained with computer-aided detection to assist in interpretation of the study. FINDINGS: The breasts are almost entirely fatty. There is a focal asymmetry in the superior central left breast at posterior third. Elsewhere, there are no mammographic features of malignancy. IMPRESSION: 1. Left breast Focal asymmetry. 2. No evidence of malignancy in the Right breast. RECOMMENDATION: Left breast Diagnostic mammogram with true lateral, appropriate spot compression views and an ultrasound if needed. BI-RADS Category 0: Incomplete: Needs additional imaging evaluation. Reviewed, dictated and finalized at location B. IMPRESSION: 1. Left breast Focal asymmetry. 2. No evidence of malignancy in the Right breast. RECOMMENDATION: Left breast Diagnostic mammogram with true lateral, appropriate spot compressio n views and an ultrasound if needed. BI-RADS Category 0: Incomplete: Needs additional imaging evaluation.
--- OUTSIDE RECORDS SUMMARY | 2025-07-20 16:17 | XMS_ITS | Encounter Summary ---
Author Organization [facility] Address [address] [place] [address] Care Team Providers Care Sleeve Wheel Maker Name Role Phone Unavailable Primary Care Provider Unavailabl e Encounter Details Date Type Department Care Team (Late st Contact Info) Description 07/19/2025 External Device Data [place] ABSTRACTION Provider, Abstract NO ADDRESS ON FILE Social History Tobacco Use Types Packs/Day Years Used Date Smoking Tobacco: Never Assessed Comments Unknown Sex and Gender Information Value Date Recorded Sex Assigned at Not on file Legal Sex Female 8:47 AM CDT Gender Identity Not on file Sexual Orientation Not on file documented as of this encounter Plan of Treatment Not on file documented as of this encounter Visit Diagnoses Not on filedocumented in this encounter
--- OUTSIDE RECORDS SUMMARY | 2025-07-20 16:17 | XMS_ITS | Encounter Summary ---
Author Organization [facility] Address [address] [place] [address] Care Team Providers Care Computer Network And Systems Engineer Name Role Phone Unavailable Primary Care Provider Unavailabl e Encounter Details Date Type Department Care Team (Late st Contact Info) Description 07/18/2025 External Device Data [facility] ABSTRACTION Provider, Abstract [...]
--- OUTSIDE RECORDS SUMMARY | 2025-07-20 16:17 | XMS_ITS | Clinical Summary ---
Author Organization [facility] [address] [facility] Address [address] [place] [address] Care Team Providers Care Regional Marketing Manager Name Role Phone Dina Agustin MD Primary Care Provider [phone] Aiden Karimi MD Unavailable [phone] Chris Mares MD Unavailable [phone] Priscilla Menjivar NP Unavailable [phone] Chris Mares MD Unavailable [phone] Aiden Karimi MD Unavailable [phone] Kelsi Barron MD Unavailable [phone] Allergies Active Allergy Reactions Criticality Noted Date Comments Hay Fever And Allergy Relief Unknown 013 Penicillins Rash Medium 10/10/2019 Medications simvastatin (ZOCOR) 40 mg tablet Take 1 tablet (40 mg total) by mouth nightly [address] (NexIUM) 40 mg capsule Take 1 capsule (40 mg total) by mouth daily before breakfast 8 Active metFORMIN XR (GLUCOPHAGE XR) 500 mg 24 hr tabletIndication s:type 2 diabetes mellitus Take 4 tablets (2,000 mg total) by mouth daily with dinner 0 Active fluticasone propionate (FLONASE) 50 mcg/actuation nasal spray Administer 2 sprays into each nostril nightly 0 Active montelukast (SINGULAIR) 10 mg tabletIndication s:Seasonal Allergic Rhinitis Take 1 tablet (10 mg total) by mouth nightly 1 Active ezetimibe (ZETIA) 10 mg tablet Take 1 tablet (10 mg total) by mouth electromechanical inspector before breakfast Active baclofen (LIORESAL) 10 mg tablet Take 1 tablet (10 mg total) by mouth 3 (three) times a day Active folic acid (FOLVITE) 1 mg tablet Take 1 tablet (1 mg total) by mouth electromechanical inspector before breakfast Only 6 days a week not on wed Active semaglutide (OZEMPIC) 1 mg/dose (2 mg/1.5 mL) pen injector injectionIndicat ions:type 2 diabetes mellitus Inject 1 mg under the skin once a week Pt states she takes every Thursday evening. Active furosemide (LASIX) 20 mg tabletIndication s:Edema Take 1 tablet (20 mg total) by mouth as needed Active busPIRone (BUSPAR) 10 mg tablet Take 1 tablet (10 mg total) by mouth 2 (two) times a day after breakfast and dinner Active betamethasone, augmented, (DIPROLENE AF) 0.05 % creamIndications :psorasis Apply topically 3 (three) times a week Active betamethasone valerate (VALISONE) 0.1 % lotion Apply topically 3 (three) times a week Active leucovorin 5 mg tablet Take 1 tablet (5 mg total) by mouth once a week After methotrexate 4 Active calcipotriene (DOVONOX) 0.005 % creamIndications :Plaque Psoriasis Apply topically every other day Active UNABLE TO FIND Take 2,000 each by mouth electromechanical inspector before breakfast Med Name: vit d 3 Active FIBER, DEXTRIN, ORAL Take by mouth electromechanical inspector before breakfast Active biotin 5 mg tablet Take by mouth electromechanical inspector before breakfast Active traMADoL (ULTRAM) 50 mg tablet Take 1 tablet (50 mg total) by mouth every 8 (eight) hours as needed for pain 42 tablet 5 Active methotrexate (TREXALL) 10 mg tabletIndication s:autoimmune disease Take 1 tablet (10 mg total) by mouth every 7 days Follow directions carefully, and ask to explain any part you do not understand. Take exactly as directed. Every Thursday, patient takes 4 tablets in the am and 3 tablets with dinner. 5 Active methotrexate (TREXALL) 7.5 mg tabletIndication s:autoimmune disease Take 1 tablet (7.5 mg total) by mouth every 7 days Follow directions carefully, and ask to explain any part you do not understand. Take exactly as directed. Every Thursday, patient takes 4 tablets in the am and 3 tablets with dinner. 5 Active guselkumab (Tremfya) 100 mg/mL auto-injector subcutaneous syringeIndicatio ns:psorasis Inject under the skin every 8 (eight) weeks Next dose 10/19/23 last dose 08/19/24./ HOLD FOR AT LEAST 2 WEEKS AFTER SURGERY OR UNTIL INCISION HAS COMPLETELY HEALED. DISCUSS WITH SURGEON'S OFFICE BEFORE RESTARTING MEDICATION 5 Active senna-docusate (PERICOLACE) 8.6-50 mgIndications:co nstipation Take 2 tablets by mouth 2 (two) times a day 80 tablet 5 Active meloxicam (MOBIC) 7.5 mg tabletIndication s:Pain Take 1 tablet (7.5 mg total) by mouth daily 30 tablet 5 Active aspirin 81 mg enteric coated tabletIndication s:Deep Vein Thrombosis Prevention Take 1 tablet (81 mg total) by mouth 2 (two) times a day 60 tablet 5 Active acetaminophen 500 mg capsuleIndicatio ns:Pain Take 2 capsules (1,000 mg total) by mouth every 8 (eight) hours 90 tablet 5 Active oxyCODONE (ROXICODONE) 5 mg immediate release tabletIndication s:Pain Take 1 tablet (5 mg total) by mouth every 4 (four) hours as needed for pain (Breakthrough Pain) 30 tablet 5 Active HYDROcodone-acet aminophen (NORCO) 10-325 mg per tablet Take by mouth every 6 (six) hours as needed 5 Active Active Problems Problem Noted Date Diagnosed Date Primary localized osteoarthritis of left hip 10/2024 GERD (gastroesophageal reflux disease) GENEVA on CPAP 07/27/2024 Subacromial bursitis of right shoulder joint 06/2024 Arthralgia of left knee 02/19/2024 Lumbar radiculopathy 02/19/2024 Morbid obesity 02/19/2024 Osteoarthritis of right knee 02/19/2024 Psoriatic arthritis 02/19/2024 Trochanteric bursitis of left hip 02/19/2024 Osteoarthritis of left hip 02/18/2024 Monoclonal gammopathy 11/01/2019 Sepsis due to pneumonia 06/02/2019 Monoclonal gammopathy presen t on serum protein electrophoresis 04/01/2019 Psoriasis 04/07/2018 Anemia 04/05/2018 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 Encounters Date Type Department Care Team Description 04/27/2025 2:50 PM CDT Lab [address] from Last 3 Months Immunizations Immunization Administration Dates Next Due COVID-19 mRNA (PFIZER) 0.3 m L (30 mcg) vaccine (12 years and up) 08/11/2024 Influenza, Unspecified 08/11/2024,2016,05/20/2016,2013,05/10/2013,04/19/2013 Pfizer SARS-CoV-2 Monovalent Vaccination (12+ Yrs) PURPLE 12/07/2020,11/16/2020 TD Preservative Free 12/10/1998 Tdap 06/01/2009 ZOSTER LIVE 10/14/2017,03/25/2017,05/20/2016 Surgical History Surgery Date Site/Laterality Comments KNEE ARTHROPLASTY HIP SURGERY COLONOSCOPY every 3 years FL FLUORO GUIDED INJECTION HIP LEFT 08/09/2024 Left Medical History Medical History Date Comments Hypercholesteremia Diabetes mellitus Monoclonal gammopathy Monoclonal gammopathy Family History Medical History Relation Name Comments Cancer Father Heart disease Mother Anesthesia problems Neg Hx Relation Name Status Comments Father Mother Social History Tobacco Use Types Packs/Day Years Used Date Smoking Tobacco: Former Cigarettes 1 50.8 S tarted: 1975 Passive Smoke Exposure: Past Smokeless Tobacco: Never Tobacco Cessation:Counseling Given: Not Answered Alcohol Use Standard Drinks/Week Comments Yes 0 (1 standard drink = 0.6 oz pur e alcohol) AUDIT-C Answer Date Recorded Q1: How often do you have a drink containing alc ohol? Monthly or less 09/29/2024 Q2: How many drinks containi ng alcohol do you have on a typical day when you are drinking? 1 or 2 09/29/2024 Q3: How often do you have si x or more drinks on one occasion? Never 09/29/2024 Personal Safety Answer Date Recorded Have you ever been in or are you currently in a harmful physical or emotional relationship or is someone making you feel afraid or unsafe? Denies 09/29/2024 Comments Unknown Sex and Gender Information Value Date Recorded Sex Assigned at Not on file Legal Sex Female 1:23 PM MENTAL HEALTH PRACTITIONER Gender Identity Not on file Sexual Orientation Not on file Obstetrics History Last Filed Vital Signs Vital Sign Reading Time Taken Comments Blood Pressure 136/60 04/14/2025 2:30 PM CDT Pulse 73 04/14/2025 2:30 PM CDT Temperature 36.2 C (97.1 F) 04/14/2025 2:30 PM CDT Respiratory Rate 20 04/14/2025 2:30 PM CDT Oxygen Saturation 97% 04/14/2025 2:30 PM CDT Inhaled Oxygen Concentration - - Weight 111.5 kg (245 lb 12.8 oz) 04/14/2025 2:30 PM CDT Height 157.5 cm (5' 2) 04/14/2025 2:30 PM CDT Body Mass Index 44.96 04/14/2025 2:30 PM CDT Plan of Treatment Health Maintenance Due Date Last Done Comments Albumin Creatinine Ratio, Urine 1959 Breast Cancer Screening-Mammogram 1959 Colon Cancer Screening-Colonoscopy 1959 Depression Screening 1959 Hepatitis C Screening 1959 Osteoporosis Screening-Bone Density Scan 1959 Dilated Eye Exam 1959 Foot Exam 1959 Lipid Panel 1959 Hepatitis B Screening 1977 Pneumococcal vaccine 65+ (1 of 2 - PCV) 1978 Zoster Vaccine (1 of 2) 12/09/2017 10/14/19 18, 03/25/2017, 05/20/2016 DTaP/Tdap/Td Vaccine (2 - Td or Tdap) 06/01/2019 06/01/2009, 12/10/1998 Well Visit 65+ 01/18/2024 Hemoglobin A1C 03/17/2025 09/16/2024 Covid-19 Vaccine (4 - Pfizer risk season) 2025 08/11/2024, 12/07/2020, 11/16/2020 Influenza Vaccine (#1) 2025 , 03/25/2017, 05/20/2016, Additional history exists Fall Risk Assessment 09/30/2025 09/30/2024 eGFR 04/14/2026 04/14/2025, 03/28, 09/30/2024, Additional history exists Medical Devices Implanted Type Area Assembling Fabricator Device Identifier Shelf Expiration Date Model / Serial / Lot Patella Right: Knee Hip Right: Hip [employer] Shell Acetabular Trident Ii Tritanium D Od48mm Hip 3 Screw Hole Cluster Sterile 702-04-48d - [id number] Implanted:Qty: 1 on 09/29/2024 at [facility] Left: Hip [employer] 07/18/2029 702-04-48D / / [id number] [employer] Insert Trident 0deg 36mm 723-00-36d - [id number] Implanted:Qty: 1 on 09/29/2024 at [facility] Left: Hip [employer] 05/08/2029 723-00-36D / / [id number] [employer] Stem Femoral Hip Collared Insignia [id number] High Offset Size 5 [id number] - [id number] Implanted:Qty: 1 on 09/29/2024 at [facility] Left: Hip [employer] 06/14/2029 [id number] / / [id number] [employer] V40 36mm Anatomic Hip +5mm Offset Taper Head Femoral [employer] Delta 6570-0-236 - [id number] Implanted:Qty: 1 on 09/29/2024 at [facility] Left: Hip [employer] 11/18/2028 6570-0-236 / / [id number] Procedures Procedure Name Priority Date/Time Associated Diagnosis Comments EGFR Routine 04/14/2025 2:20 PM CDT Anemia, unspecified type Monoclonal gammopathy HEMOGLOBIN A1C Routine 09/16/2024 5:37 PM MENTAL HEALTH PRACTITIONER Primary osteoarthritis of left hip Type 2 diabetes mellitus without complication, unspecified whether director long term care insulin use (HCC) from Last 3 Months or Most Recently Relevant to Health Maintenance Results * eGFR (04/14/2025 2:20 PM CDT) eGFR >90 >=60 mL/min/1. 73 m2 Comment: Interpretive Data Reference Interval Normal >/= 90 mL/min/1.73m2 Mildly decreased* 60 - 89 mL/min/1.73m2 Mildly to moderately decreased 45 - 59 mL/min/1.73m2 Moderately to severely decreased 30 - 44 mL/min/1.73m2 Severely decreased 15 - 29 mL/min/1.73m2 Kidney Failure < 15 mL/min/1.73m2 *Relative to young adult level Estimated glomerular filtration rate is determined by the 2020 CKD-EPI equation recommended by the National Kidney Foundation (A Unifying Approach to GFR Estimation: Recommendations of the NKF-ASK Task Force on Reassessing the Inclusion of Race in Diagnosing Kidney Disease, JASN 2020). The CKD-EPI equation should not be used for patients with unstable renal function and has not been validated in children and those over 70. Current interpretive data was last reviewed 2021. Testing performed by: [facility], [address] [facility], [place], [address] Blood 04/14/2025 2:20 PM CDT 04/14/2025 2:51 PM CDT us Tamika Rosario DIET CONSULTANT LAB BLOOD ORDERABLES Final Result [facility] [address] [facility] Department [place] [address] * (ABNORMAL) Hemoglobin A1c (09/16/2024 5:37 PM MENTAL HEALTH PRACTITIONER) Hgb A1C 6.1(H) 4.0 - 5.6 % Estimated Average Glucose 128 mg/dL NOE HERR Comment: The ADA recommends reporting an estimated Average Glucose (eAG) with all Hemoglobin A1c results using the equation derived from a study of 507 normal and diabetic adults. Minority populations were underrepresented and children were not included. (Diabetes Care 31:5973-3609, 2008). The eAG is not equivalent to a fasting glucose. Blood 09/16/2024 5:37 PM MENTAL HEALTH PRACTITIONER 09/16/2024 5:42 PM MENTAL HEALTH PRACTITIONER Angel Montejo MD LAB BLOOD ORDERABLES Final Result Performing Organization Address City/State/ZIP Co ks Phone Number NOE [facility] [address] [facility]. Department [place] [address] from Last 3 Months or Most Recently Relevant to Health Maintenance Insurance [facility] [id number] [facility] [id number] Advance Directives For more information, please contact: [phone] * Full Code (Latest Code Status on File) Date Activated Date Inactivated Comments 09/29/2024 4:28 PM 09/30/2024 5:39 PM Care Teams Regional Marketing Manager Relationship Specialty Start Date End Date Dina Agustin MD PCP - General Family Medicine 04/10/22 Aiden Karimi MD [address] [place] [address] Consulting Physician Dermatology 10/10/19 Chris Mares MD [address] [place] [address] Medical Oncologist/Hematologis t Hematology and Oncology 03/26/20 Priscilla Menjivar, LINDSEY [address] [facility] [place], [place] [address] Nurse Practitioner Dermatology 04/09/23 Chris Mares MD [address] [facility] [place] [address] Medical Oncologist/Hematologis t Hematology and Oncology 09/30/18 Aiden Karimi MD [address] [facility] [place] [address] Referring Physician Dermatology 10/08/18 Kelsi Barron MD [address] [place], [place] [address] Referring Physician Family Practice 04/07/19
--- OUTSIDE RECORDS SUMMARY | 2025-07-20 16:17 | XMS_ITS | Clinical Summary ---
Author Organization [facility] Address [address] [place] [address] Phone Care Team Providers Care Milking Machine Technician Name Role Phone Unavailable Primary Care Provider Unavailabl e Encounters Date Type Department Care Team Description 07/19/2025 External Device Data STL ABSTRACTION Provider, Abstract 07/18/2025 External Device Data STL ABSTRACTION Provider, Abstract 06/13/2025 External Device Data STL ABSTRACTION Provider, Abstract 05/02/2025 External Device Data STL ABSTRACTION Provider, Abstract 05/02/2025 External Device Data STL ABSTRACTION Provider, Abstract from Last 3 Months Social History Tobacco Use Types Packs/Day Years Used Date Smoking Tobacco: Never Assessed Comments Unknown Sex and Gender Information Value Date Recorded Sex Assigned at Not on file Legal Sex Female 8:47 AM CDT Gender Identity Not on file Sexual Orientation Not on file Plan of Treatment Health Maintenance Due Date Last Done Comments DIABETES ANNUAL FOOT EXAM 1977 DIABETES HBA1C Q 6 MONTHS 1977 DIABETES MICROALBUMIN ANNUAL SCREEN 1977 LDL CHOLESTEROL ANNUAL 1977 DTAP/TDAP/TD VACCINES (1 - Tdap) 1978 PNEUMOCOCCAL VACCINE 50+ YEARS (1 of 2 - PCV) 01/17/19 78 COLORECTAL SCREENING 01/18/2004 Colorectal Cancer Screening 01/18/2004 FIT-DNA Q 3 years 01/18/2004 FIT/FOBT Q 1 year 01/18/2004 Flex Sig/CT Colonography Q 5 years 01/18/2004 ZOSTER VACCINE (1 of 2) 2009 BREAST CANCER SCREENING 02/15/2020 02/14/2019 DIABETES ANNUAL RETINAL EXAM 08/06/2024 08/06/2023 INFLUENZA VACCINE (#1) 2025 OSTEOPOROSIS SCREENING 10/02/2026 10/02/2021 RSV VACCINE (60+ or ) (1 - 1-dose 75+ series) 2034 Insurance [facility] M[facility]
--- OUTSIDE RECORDS SUMMARY | 2025-07-20 16:17 | XMS_ITS | Encounter Summary ---
Author Organization [facility] Address [address] [place] [address] Care Team Providers Care General Machine Operator Name Role Phone Dina Agustin MD Primary Care Provider [phone] Kelsi Coe MD Unavailable [phone] Reason for Visit * Reason Onset Date Comments Medication Issue 09/30/2022 Encounter Details Date Type Department Care Team (Late st Contact Info) Description 09/30/2022 Telephone [facility] [address] [place] [address] Barrera Woods MD [address] [address] Medication Issue Social History Tobacco Use Types Packs/Day Years Used Date Smoking Tobacco: Never Assessed Comments Unknown Sex and Gender Information Value Date Recorded Sex Assigned at Not on file Legal Sex Female 5:33 PM 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 ASS PRODUCTION MANAGER * Telephone Encounter - Zoë Simmons PA - 10/03/2022 11:15 AM BIOMASS PRODUCTION MANAGER I spoke to patient She said she completed her portion for the application for Tremfya and paper mailed as well as faxed to us She spoke to Jonas last week and says jonas told her she has not received it. I asked her to email them to me and once I get them I will update her ASS PRODUCTION MANAGER * Telephone Encounter - Amy Alatorre - 09/30/2022 1:02 PM CST Pt wants update on medication paperwork for Tremfya. ASS PRODUCTION MANAGER documented in this encounter Plan of Treatment Not on file documented as of this encounter Visit Diagnoses Not on filedocumented in this encounter Care Teams General Machine Operator Relationship Specialty Start Date End Date Dina Agustin MD [address] [place] [address] PCP - General 06/27/22 Kelsi Coe MD [address] [address] PCP - Attributed-[place] 06/28/25 documented as of this encounter
--- OUTSIDE RECORDS SUMMARY | 2025-07-20 16:17 | XMS_ITS | Clinical Summary ---
Author Organization [facility] Address [address] [place] [address] Care Team Providers Care Last Remodeler Repairer Name Role Phone Dina Agustin MD Primary Care Provider [phone] Allergies Active Allergy Reactions Criticality Noted Date Comments Penicillins Unknown 06/02/2019 Medications esomeprazole 40 MG capsule Take 40 mg by mouth 2 (two) times daily. Active hydrocodone-jason taminophen 7.5-325 MG tablet Take 1 tablet by mouth every 6 (six) hours as needed for Pain. Active simvastatin 40 MG tablet Take 40 mg by mouth nightly at bedtime. Active Secukinumab (COSENTYX, 300 MG DOSE,) 150 MG/ML Solution Prefilled SyringeIndicati ons:Psoriasis Inject 300 mg into the skin monthly. Active lorazepam 0.5 MG tablet Take 0.5 mg by mouth every 6 (six) hours as needed for Anxiety. Active cyclobenzaprine 5 MG tablet Take 5 mg by mouth 3 (three) times daily as needed for Muscle Spasms. Active ipratropium-alb uterol 0.5-2.5 (3) MG/3ML Solution Take 3 mLs by nebulization 4 (four) times daily. 30 vial 9 Active azithromycin (ZITHROMAX) 250 MG tablet 500mg day one Then 250mg q day days 2-5 6 tablet 9 Active Respiratory Therapy Supplies (NEBULIZER COMPRESSOR) Kit 1 Device by Does not apply route every 4 (four) hours as needed (Shortness of Breath). 1 kit 9 Active Active Problems Problem Noted Date Diagnosed Date Sepsis due to pneumonia 06/02/2019 GENEVA on CPAP GERD (gastroesophageal reflux disease) Family History Medical History Relation Comments Arthritis Father Diabetes Father Heart Disease Father Arthritis Mother Diabetes Mother Heart Disease Mother Hyperlipidemia Mother Hypertension Mother Stroke Mother Relation Status Comments Father Mother Social History Tobacco Use Types Packs/Day Years Used Date Smoking Tobacco: Former Cigarettes Q uit: 2018 Smokeless Tobacco: Never Alcohol Use Standard Drinks/Week Comments No 0 (1 standard drink = 0.6 oz pur e alcohol) AUDIT-C Answer Date Recorded Frequency of Alcohol Consumption Never 06/02/2019 Average Number of Drinks Not on file 019 Frequency of Binge Drinking Not on file 01/2019 Comments No Sex and Gender Information Value Date Recorded Sex Assigned at Not on file Legal Sex Female 11:14 AM CDT Gender Identity Not on file Sexual Orientation Not on file Last Filed Vital Signs Vital Sign Reading Time Taken Comments Blood Pressure 107/77 06/03/2019 4:04 AM CDT Pulse 87 06/03/2019 4:04 AM CDT Temperature 37.9 C (100.2 F) 06/03/2019 4:04 AM CDT Respiratory Rate 22 06/03/2019 4:04 AM CDT Oxygen Saturation 100% 06/03/2019 10: 47 AM CDT Inhaled Oxygen Concentration - - Weight 133.2 kg (293 lb 9.6 oz) 06/02/2019 2:36 PM CDT Height 162.6 cm (5' 4) 06/02/2019 2:36 PM CDT Body Mass Index 50.4 06/02/2019 2:36 PM CDT Plan of Treatment Health Maintenance Due Date Last Done Comments Colorectal Cancer Screening Colonoscopy (10 Years) 1959 Hepatitis C 1977 DTaP, Tdap and Td Vaccines ( 1 - Tdap) 1978 Mammogram Screening 1999 Pneumococcal Vaccine: 50+ Years (1 of 1 - PCV) 2009 Zoster Vaccines (1 of 2) 2009 Annual Medicare Wellness Visit 01/18/2024 Dexa Scan (General) 01/18/2024 COVID-19 Vaccine (3 - 2024-2 6 season) 2025 12/07/2020, 11/16/2020 Influenza Adult (#1) 2025 RSV Immunization or 60+ Years (1 - 1-dose 75+ series) 2034 Hepatitis A Vaccines Aged Out No long er eligible based on patient's age to complete this topic Meningococcal B Vaccine Aged Out No l onger eligible based on patient's age to complete this topic Meningococcal Vaccine Aged Out No chuck mercy eligible based on patient's age to complete this topic RSV Immunizations Under 20 Months Aged Out No longer eligible b ased on patient's age to complete this topic Insurance AET[employer] MEDICARE Advance Directives * Full Code (Latest Code Status on File) Date Activated Date Inactivated Comments 06/02/2019 2:23 PM 06/03/2019 4:03 PM Care Teams Last Remodeler Repairer Relationship Specialty Start Date End Date Dina Agustin MD [address] [place] [id number] PCP - General FAMILY PRACTICE 06/01/21
--- OUTSIDE RECORDS SUMMARY | 2025-07-20 16:17 | XMS_ITS | Clinical Summary ---
Author Organization [facility] Address [address] [place] [address] Care Team Providers Care Clinical Dental Technician Name Role Phone Dina Agustin MD Primary Care Provider [phone] Kelsi Coe MD Unavailable [phone] Source Comments [facility],non-owned Affiliates and Associated Physician Practices is amultiple site organization consisting of ambulatory clinics and hospital sitesin [place], [place], [place] and [place]. This disclosure is being madepursuant to the Care Everywhere program and may not contain all information available regarding this patient. Last updated 18.[facility] Allergies Active Allergy Reactions Criticality Noted Date Comments Nsaids Unknown 04/07/2018 Penicillins Unknown 04/19/2013 Sulfa Drugs Other Medium 04/03/2018 Medications * Be aware that medications may not be up to date on this document. Alwaysverify current medications with the patient. Blood Glucose Monitoring Suppl (ONE TOUCH ULTRA 2) w/Device KIT Use 1 strip as instructed as needed 2 Active HYDROcodone-ac etaminophen (Estelline) 7.5-325 MG tablet Take 1 (one) tablet by mouth every 6 hours as needed Active LORazepam (Ativan) 0.5 MG tablet Take 1 (one) tablet by mouth every 6 hours as needed Active metFORMIN ER 24hr (Glucophage XR) 500 MG tablet Take 1 (one) tablet by mouth once daily 2 Active montelukast (Singulair) 10 MG tablet Take 1 (one) tablet by mouth once daily 2 Active simvastatin (Zocor) 40 MG tablet Take 1 (one) tablet by mouth once daily Active EZETIMIBE PO Take 10 mg by mouth once daily Active Baclofen 10 MG PACK Take 1 tablet by mouth 3 times daily Active esomeprazole (NexIUM) 40 MG packet Take 1 (one) packet by mouth daily before breakfast Active clobetasol emollient (Temovate E) 0.05 % cream Apply to affected area 2 times daily Active guselkumab (Tremfya) 100 MG/ML prefilled syringe Inject 1 mL subcutaneously Every 8 Weeks 1 mL 2 2 Active folic acid (Folvite) 1 MG tablet Take 1 (one) tablet by mouth once daily Take 1 daily except the day you take methotrexate 30 tablet 11 2 Active methotrexate (Rheumatrex) 2.5 MG tabletIndicati ons:Psoriatic arthritis (HCC) Take 6 (six) tablets by mouth every 7 days 72 tablet 3 Active Social History Tobacco Use Types Packs/Day Years Used Date Smoking Tobacco: Never Assessed Comments Unknown Sex and Gender Information Value Date Recorded Sex Assigned at Not on file Legal Sex Female 5:33 PM 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 Gender Identity Not on file Sexual Orientation Not on file Plan of Treatment Health Maintenance Due Date Last Done Comments BONE DENSITY TESTING 1959 COLOGUARD (AGES 45-75) - COL ON CA SCREENING 1959 COLON MONITORING 1959 COLONOSCOPY - COLON CA SCREENING 1959 CT COLONOGRAPHY - COLON CA SCREENING 1959 Colorectal Cancer Screening 1959 FIT - COLON CA SCREENING 1959 FLEX SIG - COLON CA SCREENING 1959 MAMMOGRAM 1959 HEPATITIS C SCREENING 01/12/1977 DTAP/TDAP/TD VACCINES (1 - Tdap) 1978 PNEUMOCOCCAL VACCINE 50+ (1 of 1 - PCV) 2009 ZOSTER VACCINE (1 of 2) 2009 Respiratory Syncytial Virus (RSV) Vaccine Pt: or over 60 yrs (1 - Risk 60-74 years 1-dose series) 2019 COVID-19 VACCINE (3 - Pfizer risk series) 01/04/2021 12/07/2020, 11/16/2020 DEPRESSION SCREENING 09/28/2024 INFLUENZA VACCINE (#1) 2025 HEPATITIS B VACCINE Aged Out No longe r eligible based on patient's age to complete this topic HIB VACCINE Aged Out No longer eligi ble based on patient's age to complete this topic HPV VACCINE Aged Out No longer eligi ble based on patient's age to complete this topic MENINGOCOCCAL (Group B) VACCINE SHARED DECISION-MAKING Aged Out No longer eligible based on patient's age to complete this topic MENINGOCOCCAL GROUPS A/C/Y/W VACCINE Aged Out No longer eligible b ased on patient's age to complete this topic Insurance [employer] Care Teams Clinical Dental Technician Relationship Specialty Start Date End Date Dina Agustin MD [address] [place] [address] PCP - General 06/27/22 Kelsi Coe MD [address] [phone] PCP - Attributed-[facility] 06/28/25
--- OUTSIDE RECORDS SUMMARY | 2025-07-20 16:17 | XMS_ITS | Encounter Summary ---
Author Organization [facility] Address [address] [facility] [address] [place] [address] Care Team Providers Care Securities Compliance Examiner Name Role Phone Geovany Jalloh MD Primary Care Provider [phone] Dina Agustin MD Primary Care Provider [phone] Kelsi Coe MD Unavailable [phone] Encounter Details Date Type Department Care Team (Late st Contact Info) Description 12/02/2019 Lab Requisition [facility] [address] [facility] [place] [address] [place] [address] Social History Tobacco Use Types Packs/Day Years Used Date Smoking Tobacco: Never Assessed Comments Unknown Sex and Gender Information Value Date Recorded Sex Assigned at Not on file Legal Sex Female 5:33 PM EDITOR 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 Gender Identity Not on file Sexual Orientation Not on file documented as of this encounter Plan of Treatment Not on file documented as of this encounter Procedures Procedure Name Priority Date/Time Associated Diagnosis Comments DERMATOPATHOLOGY Routine 12/01/2019 12:0 0 AM EDITOR 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 documented in this encounter Results * DERMATOPATHOLOGY (12/01/2019 12:00 AM EDITOR 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) Case Report Dermatopathology Report Case: [id number] Authorizing Provider: Aiden Karimi MD Collected: 12/01/2019 12:00 AM Ordering Location: [facility] Received: 12/02/2019 01:08 PM Pathologist: Yodit Mckeon MD Specimen: Skin, left breast ulcer edge 0 4:30 PM CDT DERMATOPATHOLOGY LABORATORY Final Diagnosis Specimen A. 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 0 4:30 PM CDT DERMATOPATHOLOGY LABORATORY Gross Description Specimen A: Received is one formalin filled container labeled with the patient's name and designated left breast ulcer edge. The specimen consists of 2 punch biopsies measuring [id number], bisected and submitted in cassette 1, and [id number], bisected and submitted in cassette 2. Jar 0. 0 4:30 PM CDT DERMATOPATHOLOGY LABORATORY Microscopic Description Specimen A. SKIN, left breast ulcer edge: There is an ulcer, beneath which there are vascular proliferation, fibroblasts, and an edematous stroma. Associated sinus tract formation is identified. Sections show collections of epithelioid histiocytes with scattered multinucleate giant cells. There are collections of neutrophils as well as scattered eosinophils and plasma cells. GMS, Gram and Lilia stains are negative for microorganisms. COMMENT: The histological differential diagnosis includes bacterial, mycobacterial, and fungal infections. Tissue culture is recommended. If tissue cultures are negative, these histologic findings would be compatible with a diagnosis of pyoderma gangrenosum, specifically the variant known as superficial granulomatous pyoderma. Alejo E, Arnoldo ARTHUR. Superficial granulomatous pyoderma: a localized vegetative form of pyoderma gangrenosum. J Am Acad Dermatol. 1988 Nov;18(3):511-21. 0 4:30 PM CDT DERMATOPATHOLOGY LABORATORY Disclaimer An external and internal positive and negative controls are appropriate for the histochemical, immunohistochemical and immunofluorescence stain(s) in this case (if any), except where stated explicitly. The performance characteristics of the stain(s) cited in this report were developed and its performance characteristic determined by the Dermatopathology Laboratory at [facility], directed by Dr. M. Elizabeth Ta. These tests need not be, and therefore are not, approved by the [place] Food and Drug Administration. The tests are used for clinical purposes. Billing Codes Specimen Charges Stain Charges 66396 1 36325 [id number] 92358 13191 [id number] 82866 1 1 1 1 1 1 0 4:30 PM CDT DERMATOPATHOLOGY LABORATORY Embedded Images 0 4:30 PM CDT DERMATOPATHOLOGY LABORATORY Pathology/Cytolog y TISSUE SPECIMEN FROM SKIN / Unknown 12/01/2019 12/02/2019 1:08 PM EDITOR 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 Aiden Karimi MD LAB - PATHOLOGY/CYTOLOGY ORD ERABLES Final Result DERMATOPATHOLOGY LABORATORY [facility] - Department of Dermatology [address] [place] [address], 5[address] Floor Lab [address] [phone] documented in this encounter Visit Diagnoses Not on filedocumented in this encounter Care Teams Securities Compliance Examiner Relationship Specialty Start Date End Date Geovany Jalloh MD [address] [place] [address] PCP - General 04/12/13 06/26/22 [place] [address] [place] [address] PCP - General 06/27/22 Kelsi Coe MD [address] [phone] PCP - Attributed-Dre [place] 06/28/25 documented as of this encounter
--- OUTSIDE RECORDS SUMMARY | 2025-07-20 16:17 | XMS_ITS | Encounter Summary ---
Author Organization [facility] Address [address] [place] [address] Care Team Providers Care Electrician Crane Maintenance Name Role Phone Dina Agustin MD Primary Care Provider [phone] Kelsi Coe MD Unavailable [phone] Reason for Visit * Reason Onset Date Comments Nurse Only 08/25/2022 Encounter Details Date Type Department Care Team (Late st Contact Info) Description 08/25/2022 Telephone [facility] [address] [facility] [place] [phone] Barrera Woods MD [address] [facility] [address] [place] [address] Nurse Only Social History Tobacco Use Types Packs/Day Years Used Date Smoking Tobacco: Never Assessed Comments Unknown Sex and Gender Information Value Date Recorded Sex Assigned at Not on file Legal Sex Female 5:33 PM 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 ION SPRING COILING MACHINE SETTER documented in this encounter Plan of Treatment Not on file documented as of this encounter Visit Diagnoses Not on filedocumented in this encounter Care Teams Electrician Crane Maintenance Relationship Specialty Start Date End Date Dina Agustin MD [address] [place] [address] PCP - General 06/27/22 Kelsi Coe MD [address] [address] PCP - Attributed-Dre [place] 06/28/25 documented as of this encounter
--- OUTSIDE RECORDS SUMMARY | 2025-07-20 16:17 | XMS_ITS | Data Portability ---
Author Organization [facility], [address] [place] [address] Neurology ([place]) Address [address] [place] [address] Care Team Providers Care Peeled Potato Inspector Name Role Phone MARY KATE HOLLOWAY Primary Care Provider [phone] Assessment Encounter Date Assessment Date Assessment LastModified by Organization Details LastModified Time 02/19/2024 02/19/2024 SUBJECTIVE: This is a 64 year-old female with a history of left hip pain. I am asked to see the patient at the request of Dr. Kam. The patient is under the care of Dr. Kam for a history of psoriatic arthritis. She is on methotrexate as well as Tremfya. The pain has been present for nearly 2 years and progressively getting worse. The patient reports no history of antecedent trauma. The location of the pain is mostly over the lateral hip with minimal radiation. She does not really describe a lot of groin pain. The patient rates the pain as a 8 on a scale of 1-10. The patient describes progressive restriction with activities of daily living. The patient reports no swelling. She denies any fever or chills. The patient reports locking, catching, popping, giving way, as well as associated weakness. The patient denies numbness or tingling. Workup thus far includes plain films obtained 06/03/2023 at the [facility] by Dr. Kam that I independently reviewed and interpreted. I do agree with the findings of severe arthritis of the left hip. She also has satisfactory appearance of a cementless right total hip arthroplasty. She tells me that this was performed by Dr. Dyson at [facility] in [place], [place]. She is well satisfied with the right hip but then a subsequent left total knee arthroplasty that he performed has in her mind and the failure as she continues to have pain and instability in the left knee. She feels that it will go into hyperextension and then flexes without warning causing her to almost fall. However, the caveat here is that she does have significant left lower extremity radiculopathy. She has failed both LESI and formal physical therapy in the past. She has never had surgery for her lumbar spine and is not actively seeing anyone at this time. I also independently reviewed and interpreted imaging of her right knee from the same date (06/03/2023) of the right knee confirming that she does have moderate to severe tricompartmental arthritis of the right knee. She has not had any recent treatment for this and she is not specifically here to see me about this today. The patient reports no history of previous right knee surgery or left hip surgery. She has not had any injections for the left hip but tells me that previous injections prior to having it replaced on the right hip were ineffective. Her experience with failed injections in the lumbar spine and the right hip have led her to believe that injections do not work for her. The patient has tried Osteo Bi-Flex and also takes hydrocodone which is provided by her consulting systems engineer, Dr. Mary Kate Lopez. She lives in [place], [place]. She has not tried any formal physical therapy. She did visit with another surgeon at [facility] that told her that the left knee needed to be redone but that because of her psoriasis, she was not a candidate for any surgical intervention. Again, she is not specifically here to see me about the left knee but did make me aware of this. Her primary reason for seeing me today is that she wants to have her left hip replaced. She tells me that she has largely neglected this because her has been sick but now she is ready to have it replaced. She is a diabetic with a stable hemoglobin A1c (6.3) and has been losing weight on Ozempic. She tells me that she has lost 25 pounds but she weighs 259 pounds today and tells me that she was as much is 276 pounds in September. She remains morbidly obese. This is predominately truncal obesity. She is a former smoker. The patient denies any calf pain, chest pain, or shortness of breath. The patient has negligible pain at night. The patient has difficulty walking more than 50 yards and has difficulty with stairs. Going downstairs is the worst. The patient is now here to be seen in consultation for further treatment recommendations. She presents today alone. OBJECTIVE: The patient is alert and oriented, pleasant and cooperative. She is morbidly obese standing 5 foot 3 and 259 pounds. The patient demonstrates antalgic gait. The patient has normal lower extremity alignment. The patient demonstrates 1+ dorsalis pedis and nonpalpable posterior tibial pulse bilaterally. The patient has normal strength and sensation in the lower extremities. The patient demonstrates no effusion. There is no ecchymosis or erythema about the hips or knees. She does have a well-healed left knee surgical scar but it is somewhat dystrophic with surrounding erythema which she says is attributable to psoriatic arthritis. Range of motion of the left knee is 0 to 118 degrees. By contrast, range of motion of the right knee is 2 to 122 degrees. She has no reproducible pain to palpation about the right knee or the left knee. She has slight pain with forced flexion of the right knee. She has good patella tracking on the right with good ligamentous integrity. She has good flexion/extension symmetry on the left. I do not appreciate any significant pathology on my limited exam of the left knee. The patient demonstrates modest pain and apprehension with attempts at internal rotation of the left hip. She does have some very slight pain when she brings the flexed hip into an extended position. Range of motion of the left hip reveals full extension with 80 degrees of flexion. She has a 10 degree external rotation contracture with further external rotation of only 30 degrees. Leg lengths were not assessed today. The patient demonstrates no calf tenderness bilaterally and bilateral Homans test is negative. The patient has positive straight leg raise on the left. There is minimal pain to palpation across the lumbar spine or paraspinal musculature. The patient has no pain to palpation over the SI joint bilaterally. No pain over the sciatic notch bilaterally. She does have some left hip trochanteric tenderness. RADIOGRAPHS: No new films obtained today. ASSESSMENT: 1.) Severe primary localized osteoarthritis of the left hip. 2.) History of successful cementless right total hip arthroplasty performed by Dr. Dyson at [facility] in [place], [place]. 3.) History of similar left total knee arthroplasty performed byDr. Dyson at [facility] in [place], [place]. She is not satisfied with the left knee and does have some psoriasis about the surgical incision site but no clear-cut evidence for infection, loosening, or other pathology clinically. I do not have any radiographs of the left knee at this time. However, she has been told by another surgeon in [facility] that it likely needs to be revised but that she is not a candidate because of her psoriasis. 4.) She does have a history of psoriatic arthritis under the care of of Dr. Kam with methotrexate and Tremfya. 5.) Moderate to severe primary localized osteoarthritis of the right knee that is less symptomatic. 6.) Left lower extremity radiculopathy with history of failed LESI and formal physical therapy. 7.) She is a former smoker and morbidly obese with a current height of 5 foot 3 and a weight of 259 pounds. Her goal weight to be below a BMI of 40 is 225 pounds. 8.) She lives in [place], [place]. PLAN: We discussed the natural history of this condition and talked about the various non-operative treatment options. I discussed the benefits of nutraceuticals and provided them with a nutraceutical sheet. We discussed the risks and benefits of anti-inflammatory. We discussed the role of activity modification, weight control, physical therapy, injectables, and surgical recommendations. I have recommended weight loss as well as a trial of zoav-awb-cxhdqwg supplements. I have recommended a trial of hoet-jql-tlgstqb supplements including glucosamine/chondr oitin, ASU, vitamin E, turmeric, and boswellia. At this time, the patient plans to proceed with my recommendations. She is not currently a surgical candidate. She will try the nutraceuticals but she defers an injection today. We will have her follow-up in 3 months for reevaluation with a weight check and at that visit, we will get 3 views of the left knee for annual surveillance. [email or web address] Not available 02/19/2024 12:35:31 03/10/2024 03/10/2024 IMPRESSION: 1. Left hip end-stage osteoarthritis. 2. Psoriatic arthritis. 3. Plaque psoriasis. 4. Osteoarthritis. PLAN: 1. DMARD labs in March 2024 to coincide with her labs she routinely has done for her oncologist, Dr. Mares. 2. Continue current methotrexate and folic acid dosing. 3. Tremfya dosing per Dermatology. 4. Followup visit in 4 months for recheck. [email or web address] Not available 03/12/2024 11:30:51 07/07/2024 07/07/2024 IMPRESSION: 1. Right shoulder impingement syndrome. 2. End-stage osteoarthritis of the left hip. 3. Psoriatic arthritis. 4. Plaque psoriasis. 5. Osteoarthritis. PLAN: 1. Right shoulder subacromial bursa cortisone injection today. The indications, risks, benefits and potential side effects of this procedure are discussed with the patient today in detail. She is seated at the end of the exam table and the right shoulder is exposed with landmarks identified and the injection site marked. The injection site is cleaned with Betadine and while maintaining sterile technique, ethyl chloride spray is used to anesthetize the skin while a 25-gauge needle attached to a syringe containing a mixture of 60 mg of Depo-Medrol and 2 mL of 1% lidocaine is introduced into the subacromial space. The contents of the syringe are injected, and the needle is removed. The area is cleaned and covered with a sterile bandage. There are no complications or blood loss. The patient is discharged home in stable condition. I performed this procedure myself with the assistance of my nursing staff. 2. Continue current methotrexate and folate dosing. 3. Tremfya dosing per Dermatology. 4. DMARD labs at this time as ordered. 5. Followup visit in 4-1/2 months with labs once again for DMARD monitoring. [email or web address] Not available 07/09/2024 16:37:49 01/05/2025 01/05/2025 IMPRESSION: 1. Psoriatic arthritis. 2. Plaque psoriasis. 3. Osteoarthritis. PLAN: 1. Continue current methotrexate, leucovorin, meloxicam and TREMFYA dosing. 2. DMARD labs to continue every 4 months as scheduled. 3. One hour or more of weightbearing activity daily. 4. Ice alternating with liniments 3 times daily to the left knee and left hip as needed. 5. Followup visit in 1 year. Today I had a lengthy discussion with the patient regarding my clinical impressions and overall recommendations. All of her questions and concerns are addressed today in detail. I personally spent a total of 32 minutes on the patient on this date of service including both fhgv-gj-mieq and wvr-esuy-or-face time excluding any separately reportable services. [email or web address] Not available 01/06/2025 10:10:25 Plan of Treatment Reminders Order Date Submit Date Provider Last Modified By Organization Details Last Modified Time Details Appointments Establish ed Patient 15.EST 2025 03:00P M Dr. Deion Kam Not available Not available Not available Lab CBC 2023 024 [facility], [address] [place] [address], [id number], 04/08/2024 14:10:41 CMP, serum or plasma 2023 024 [facility], [address] [place] [address], [id number], 04/08/2024 14:10:41 ESR (erythroc yte sedimenta tion rate), blood 2023 024 [facility], [address] [place] [address], [id number], 04/12/2024 16:38:25 unlisted lab - CRP ([facility] only) 2023 024 [email or web address] [facility], [address] [place] [address], [id number], 04/12/2024 16:38:25 Referral None recorded. Procedures None recorded. Surgeries None recorded. Imaging None recorded. Medication Orders Depo-Medr ol 80 mg/mL suspensio n for injection 2023 024 [id number], [address] [place], [address], 01/05/2025 17:09:38 Patient TargetsNo targets recorded. Patient InstructionsNo instructions recorded. Reason for Referral None Reported. Results Created Date Observation Date Name Description Value Unit Range Abnormal Flag Note LastModifiedBy Organization Detail LastModifiedTime Result Notes None recorded. Problems Name Problem SNOMED Code Status Onset Date Resolution Date Notes Provider Name and Address Organization Details Recorded Time Osteoarthri tis of left hip joint 4389629234532 08 Active 2023 Kirill Gutierrez[place], [place] - [facility] 15:24:08 Pain of left knee joint 6544049690553 07 Active 2023 Hernan Lorenzo MD [address], [place], [address], [facility] 4 12:19:39 Osteoarthri tis of right knee joint 9934263636347 00 Active 2023 Hernan Lorenzo MD [address], [place], [address], [facility] 4 12:19:48 Morbid obesity 706912838 Active 2023 Hernan Lorenzo MD [address], [place], [address], [facility] 4 12:19:53 Lumbar radiculopat hy 443235216 Active 2023 Hernan Lorenzo MD [address], [place], [address], [facility] 4 12:20:09 Psoriatic arthritis 268813088 Active 2023 Kevin Aldridge [facility], [facility] 4 16:50:54 Trochanteri c bursitis of left hip 1774151364608 03 Active 2023 Hernan Lorenzo MD [address], [place], [address], [facility] 4 12:34:56 Plaque psoriasis 064950077 Active 2023 Deion Kam MD [address], [place], [address], [facility] 4 16:10:13 Subacromial bursitis of right shoulder 4020933578854 109 Active 2023 Deion Kam MD [address], [place], [address], [facility] 4 16:11:52 Generalized osteoarthri tis 241155241 Active 2024 Deion Kam MD [address] [place] [address], [address] [place] [address] 5 17:32:48 Problem Notes None recorded. Medical Equipment None Reported. Allergies Allergen ID Allergen Name Allergen Category Reaction Reaction Severity Criticality Documentation Date Start Date Code Code System Note Provider Name and Address Organization Details Recorded Time 9881960 Non-stero idal anti-infl ammatory agent (substanc e) medicatio n Not available Not available Not available 10/28/20232022 56020 5008 SNOMED Not Available [facility] 4 03:57:12 6479129 Product containin g penicilli n (product) medicatio n Not available Not available Not available 10/28/20232022 26320 8001 SNOMED Not Available [facility] 4 03:57:12 Medications Name Sig Start Date Stop Date Status Note LastModified by Organization Details LastModified Time prednisone 10 mg tablet 5 TAB BY MOUTH X2 DAYS, 4 TAB X2 DAYS, 3 TAB X2 DAYS, 2 TABS X2 DAYS, 1 TABS X2 DAY, THEN STOP. 07/07 completed Not Available Not Available Not Available doxycycline hyclate 100 mg capsule TAKE 1 CAPSULE BY MOUTH TWICE DAILY X 10 DAYS 01/05 completed Not Available Not Available Not Available albuterol sulfate 2.5 mg/3 mL (0.083 %) solution for nebulizatio n 2.5 MG (3 ML) INHALED EVERY 4 - 6 HOURS NEEDED FOR SHORTNESS OF BREATH OR WHEEZING 01/05 completed Not Available Not Available Not Available fluconazole 150 mg tablet TAKE 1 TABLET (150 MG TOTAL) BY MOUTH ONCE FOR 1 DOSE. active Not Available Not Available No t Available betamethaso ne, augmented 0.05 % topical cream MIX WITH CALCIPOTR IENE AND APPLY ONCE TO TWICE DAILY NEEDED TO PSORIASIS active Not Available Not Available No t Available betamethaso ne valerate 0.1 % lotion active Not Available Not Available Not Available hydrocodone 10 mg-acetamin ophen 325 mg tablet TAKE 1 TABLET BY MOUTH EVERY 6 HOURS NEEDED FOR PAIN active Not Available Not Available No t Available tramadol 50 mg tablet TAKE 1 TABLET (50 MG TOTAL) BY MOUTH EVERY 8 (EIGHT) HOURS NEEDED FOR PAIN. active Not Available Not Available No t Available simvastatin 40 mg tablet TAKE 1 TAB (40 MG) ORALLY DAILY active Not Available Not Available No t Available Depo-Medrol 80 mg/mL suspension for injection Take 60 mg by injection route. 01/05 completed Not Available Not Available Not Available cefadroxil 500 mg capsule TAKE 1 CAPSULE BY MOUTH 2 TIMES A DAY FOR 14 DAYS FOR INFECTION PREVENTIO N AFTER JOINT SURGERY active Not Available Not Available No t Available meloxicam 7.5 mg tablet TAKE 1 TABLET BY MOUTH EVERY DAY active Not Available Not Available No t Available lorazepam 0.5 mg tablet TAKE 1 TABLET BY MOUTH EVERY 8 HOURS NEEDED FOR ANXIETY 01/05 completed Not Available Not Available Not Available methotrexat e sodium 2.5 mg tablet ONCE WEEKLY, TAKE 7 TABLETS BY MOUTH(OK to take 4 tablets in am and 3 tablets in pm of same day) 2024 active Not Available Not Available Not Avai lable baclofen 10 mg tablet TAKE 1/2 TO 1 TABLETS THREETIME S DAILY NEEDED FOR MUSCLE SPASM active Not Available Not Available No t Available hydrocodone 7.5 mg-acetamin ophen 325 mg tablet TAKE 1 TABLET BY MOUTH EVERY 6 HOURS NEEDED FOR PAIN 07/07 completed Not Available Not Available Not Available esomeprazol e magnesium 40 mg capsule,del ayed release TAKE 1 CAPSULE BY MOUTH EVERY DAY active Not Available Not Available No t Available buspirone 10 mg tablet TAKE 1 TABLET BY MOUTH THREE TIMES A DAY active Not Available Not Available No t Available leucovorin calcium 5 mg tablet ONCE WEEKLY, TAKE 1 TABLET BY MOUTHTAKE 24 HOURS AFTER METHOTREX ATE DOSE 2024 active Not Available Not Available Not Avai lable folic acid 1 mg tablet Take 1 tablet(s) every day by oral route. 2024 active Not Available Not Available Not Avai lable hydrocortis one 2.5 % topical cream PLEASE SEE ATTACHED FOR DETAILED DIRECTION S active Not Available Not Available No t Available montelukast 10 mg tablet TAKE 1 TABLET BY MOUTH IN THE EVENING active Not Available Not Available No t Available mupirocin 2 % topical ointment APPLY TOPICALLY TO NOSTRILS TWICE A DAY FOR 5 DAYS STARTING 5 DAYS PRIOR TO SURGERY active Not Available Not Available No t Available furosemide 20 mg tablet TAKE 1 TABLET BY MOUTH EVERY MORNING NEEDED FOR EDEMA active Not Available Not Available No t Available albuterol sulfate HFA 90 mcg/actuati on aerosol inhaler INHALE 1 PUFF EVERY 4 HOURS NEEDED FOR SHORTNESS OF BREATH OR WHEEZING 01/05 completed Not Available Not Available Not Available C-Time 500 mg capsule,ext ended release Take 2 capsules every day by oral route. active Not Available Not Available No t Available ketoconazol e 2 % topical cream MIX WITH HYDROCORT ISONE CREAM AND APPLY TWICE DAILY NEEDED TO RASH ON FACE active Not Available Not Available No t Available fluticasone propionate 50 mcg/actuati on nasal spray,suspe nsion 1 SPRAY INTRANASA LLY EVERY 12 HOURS ADMINISTE R INTO EACH NOSTRIL active Not Available Not Available No t Available metformin ER 500 mg tablet,exte nded release 24 hr TAKE 4 TABLETS DAILY active Not Available Not Available No t Available oxycodone 5 mg tablet TAKE 1 TABLET (5 MG TOTAL) BY MOUTH EVERY 4 (FOUR) HOURS NEEDED FOR PAIN (BREAKTHR OUGH PAIN) active Not Available Not Available No t Available ezetimibe 10 mg tablet TAKE 1 TABLET BY MOUTH EVERY DAY active Not Available Not Available No t Available Co Q-10 200 mg capsule Take by oral route. active Not Available Not Available No t Available biotin 500 mg daily active Not Available Not Available No t Available Glucosamine Take 1500 mg twice daily active Not Available Not Available No t Available potassium 650 mg active Not Available Not Ashleigh ilable Not Available Multiple Vitamins/Wo mens Once every day active Not Available Not Available No t Available Elderberry Take 3 times per week 01/05 completed Not Available Not Available Not Available varenicline tartrate 1 mg tablet TAKE 1 TABLET BY MOUTH TWICE A DAY 03/10 completed Not Available Not Available Not Available varenicline tartrate 0.5 mg (11)-1 mg (42) tablets in a dose pack PER PACKAGE DIRECTION S 03/10 completed Not Available Not Available Not Available CoQ-10 100 mg capsule Take 4 capsules every day by oral route. 01/05 completed Not Available Not Available Not Available Senexon-S 8.6 mg-50 mg tablet TAKE 2 TABLETS BY MOUTH TWICE A DAY active Not Available Not Available No t Available D3-2000 50 mcg (2,000 unit) capsule Take by oral route. active Not Available Not Available No t Available B12 5,000 mcg-100 mcg sublingual lozenge Take as directed 3 times per week active Not Available Not Available No t Available Fiber (psyllium husk) as needed active Not Available Not Available No t Available Osteo Bi-Flex Triple Strength Take once daily active Not Available Not Available No t Available turmeric 400 mg capsule Take 1 capsule every day by oral route. active Not Available Not Available No t Available Tremfya 100 mg/mL subcutaneou s auto-inject or INJECT 100MG UNDER THE SKIN EVERY 8 WEEKS active Not Available Not Available No t Available Ozempic 2 mg/dose (8 mg/3 mL) subcutaneou s pen injector INJECT 2MG SUBCUTANE OUSLY ONCE WEEKLY active Not Available Not Available No t Available D3-5000 125 mcg (5,000 unit) capsule Take 1 capsule 3 times a week by oral route. 01/05 completed Not Available Not Available Not Available Ozempic 0.25 mg or 0.5 mg (2 mg/3 mL) subcutaneou s pen injector 0.5 MG (0.736 ML) SUBCUTANE OUSLY WEEKLY FOR 4 WEEKS FOR 4 WEEKS 07/07 completed Not Available Not Available Not Available Boswellia lino extract-tur meric root extract 500 mg capsule Take 1 capsule every day by oral route. 01/05 completed Not Available Not Available Not Available Vitals Date Recorded Body height Body mass index (BMI) Body weight Heart rate Oxygen saturation Oxygen saturation in Arterial blood by Pulse oximetry Systolic And Diastolic Provider Name and Address Organization Details Last Updated DateTime 160.02 cm 42.9 kg/m2 439239. 07 g 100 /min 97 % 97 % 142/86 mm[Hg] Zoi Dunse [facility] 17:06:24 Date Recorded Body height Body mass index (BMI) Body weight Body temperature Provider Name and Address Organization Details Last Updated DateTime 02/19/2024 160.02 cm 45.9 kg/m2 624636.42 g 97.1 [degF] Vijay Diaz [facility] 02/19/2024 10:30:19 Date Recorded Body height Body mass index (BMI) Body weight Heart rate Oxygen saturation Oxygen saturation in Arterial blood by Pulse oximetry Pain severity - 0-10 verbal numeric rating [Score] - Reported Systolic And Diastolic Provider Name and Address Organization Details Last Updated DateTime 4 160.02 cm 46.2 kg/m2 255708. 61 g 81 /min 97 % 97 % 8 144/86 mm[Hg] Kevin Aldridge [facility] 4 15:34:55 Date Recorded Body height Body mass index (BMI) Body weight Heart rate Oxygen saturation Oxygen saturation in Arterial blood by Pulse oximetry Pain severity - 0-10 verbal numeric rating [Score] - Reported Systolic And Diastolic Provider Name and Address Organization Details Last Updated DateTime 4 160.02 cm 45 kg/m2 130060. 74 g 85 /min 94 % 94 % 8 126/84 mm[Hg] Janet Fryman [facility] 4 15:38:00 Social History Question Answer Notes LastModified by Organizat ion Details LastModified Time Tobacco Smoking Status Former Smoker [facility] 07/07/2024 15:40:30 When Did You Quit Smoking? 2014 [email or web address] Information not available 07/07/2024 Sex: Unknown Functional Status None recorded. Mental Status None recorded. Family History Nothing Reported. Medical History No medical history recorded. Gynecological HistoryNo gynecological history recorded. Obstetrics History GPAL:G 0 P 0 0 0 0 Past Encounters Encounter ID Performer Location Encounter Start Date Encounter Closed Date Diagnosis/Indication Diagnosis SNOMED-CT Code Diagnosis ICD10 Code Diagnosis IMO Codes Diagnosis Note [id number] Hernan Lorenzo MD [facility] ([place] [address] [facility] [place] [address] 02/19/2024 09:18:56 02/23/2024 13:42:49 Osteoarthritis of left hip joint [id number] 68325 M16.12 History of total replacement of right hip joint 8153030958 67596 Z96.641 History of left total knee replacement 1250847421 438905 Z96.652 Pain of le ft knee joint 6070291093 63513 M25.562 Osteoarthr itis of right knee joint 8120255465 79689 M17.11 Morbid obesity 318800211 E66.01 Lumbar radiculopathy 128 453809 M54.16 Psoriatic arthritis 1563 09173 L40.50 Trochanter ic bursitis of left hip 3514080383 19406 M70.62 [id number] Deion Kam MD [facility] [place] [address] [facility] [place] [address] 03/10/2024 15:02:16 03/14/2024 12:23:18 Osteoarthritis of left hip joint 0466113083 77033 M16.12 Psoriatic arthritis 1563 98464 L40.50 Lumbar radiculopathy 128 M54.16 bed bug exterminator methotrexate user 8673621283 00 Z79.631 [id number] Deion Kam MD [facility] [place]) [address] [place] [address] 07/07/2024 15:26:36 07/12/2024 09:32:01 Subacromial bursitis of right shoulder 5433340432 653668 M75.51 Psoriatic arthritis 1563 43626 L40.50 Osteoarthr itis of left hip joint 7322965566 77232 M16.12 Plaque psoriasis 0869159 09 L40.0 [id number] Deion Kam MD [facility] [place]) [address] [address] 01/05/2025 16:30:28 01/09/2025 15:41:24 Psoriatic arthritis 698927706 L40.50 Plaque psoriasis 6842568 09 L40.0 Generalize d osteoarthritis 160372509 M15.9 1453 Health Concerns Section Related Observation LastModified by Organization Detai ls LastModified Time None Recorded Concern Status LastModified by Organization Details LastModified Time None Recorded Advance Directives Directive None Recorded Payers Insurance Date Sequence Insurance Name Policy Number Policy Condon Covered Member ID Condon Member ID Guarantor Name 01/09/2025 1 [employer] (MEDICARE REPLACEMENT/ ADVANTAGE - PPO) [id number] Amberly Thomas [id number] Amberly Thomas Notes Date Note Type Note Provider Name and Address Organization Details Recorded Time 03/10/2024 text/html The patient is a 64-year-old female with a history of psoriatic arthritis, plaque psoriasis and osteoarthritis of the left hip that end-stage. She is here for a followup visit today. She continues on methotrexate therapy along with her folate supplement. Today she complains that the left hip remains quite painful. It limits her from standing or ambulating for more than a few minutes without having to sit down and rest. When she is seated, the pain is a 0/10 on a scale. When she is up standing or ambulating, her left hip groin pain hits an 8-9/10 on a scale. She will take Tylenol for analgesic relief. She reports currently in addition to her methotrexate, she is on Tremfya from her broaching machine repairer. She reports overall her skin is doing much better, but the joints still remain stiff for up to an hour in the morning, including her hands, wrists, knees, ankles and feet. She denies any medication associated side effects, such as postdosing stomatitis, alopecia, cough, pleurisy, shortness of breath, chest pain or palpitations, GERD, melena or hematochezia, diarrhea or constipation, anorexia or early satiety. No injection site reactions or increased frequency of infections. The patient reports since last visit she did see Dr. Lorenzo of orthopedics regarding her left hip, but was told that she would need to lose weight prior to any consideration of hip replacement. She, of note, has undergone a right total hip arthroplasty previously. She currently is on Ozempic therapy. She is trying to watch her diet.praveen Kam MD [address] [place] [address], [phone], [facility] 03/15/2024 23:13:01 07/07/2024 text/html The patient is a 64-year-old female with a history of psoriatic arthritis, plaque psoriasis and end-stage osteoarthritis of the left hip, who is here today for a followup visit. She was seen by Orthopedics, Dr. Barbosa, at [facility] and did have a left hip trochanteric bursa cortisone injection. She is to follow up with her orthopedic surgeon regarding the possibility of a left hip replacement. Today, she reports continuing on her methotrexate therapy along with her Tremfya from her broaching machine repairer. She has had no outbreaks of her skin. It is currently well controlled. She reports roughly 1 hour of morning stiffness. Most of her pain is originating not only in the left hip, but also the right shoulder where she has had over the past 2 weeks a flare of impingement symptoms with difficulties performing reaching and overhead activities. She avoids lying on her right shoulder at night if at all possible. It will awaken her from sleep. She does use a cane in her right hand for ambulation. She has had no falls or fractures since last visit. She rates her pain a 7-8/10 on a scale. She has not had to go to the emergency room or Urgent Care because of her musculoskeletal complaints. On review of systems, she has had no injection site reactions, increased frequency of infections, fevers, unexplained weight loss, night sweats, aphthous ulcers, sinus complaints, sore throat, epistaxis, neck swelling, cough or pleurisy, shortness of breath, chest pain or palpitations, GERD, melena or hematochezia, diarrhea or constipation, anorexia or early satiety, dysuria or gross hematuria, or bleeding from the nares or gums.adali Deion Kam MD [facility] [address], [address], [facility] 07/11/2024 20:13:51 01/05/2025 text/html The patient is a 64-year-old female with psoriatic arthritis, plaque psoriasis and osteoarthritis, who is here today for a followup visit. She reports since last visit she underwent left total hip arthroplasty on September 29, 2024. She reports the hip feels tremendously better, but now she is encountering some anterolateral pain at the site of her left total knee arthroplasty. She has had no falls. She rates her pain a 6/10 on a scale. It is better with rest, elevation and the application of ice. She does have liniments at home, but has not yet used them on her knee. She does use them on her right shoulder. She reports the cortisone injection of the shoulder at last visit only provided about 2 weeks of relief. She continues on her methotrexate, meloxicam and TREMFYA therapy. She states her skin is well controlled. Her joints still flare from time to time, especially at the hands and wrists. She reports roughly 1-2 hours of morning stiffness each day. She has not missed any doses of her medications aside from around the perioperative period regarding her left total hip arthroplasty. She has had no fever or chills. No generalized skin rash, aphthous ulcers, Raynaud s symptoms, cough, pleurisy, shortness of breath, chest pain or palpitations, GERD, melena or hematochezia, diarrhea or constipation, anorexia or early satiety, dysuria or gross hematuria or bleeding from the nares or gums. No increased frequency of infections or injection site reactions.adali Kam MD [address] [place] [address], [phone], [facility] 01/08/2025 11:07:52 OBGyn Episode No OBEpisode recorded.
== END 2025-07-20 15:17 | disposition home or self-care (01) ==
LOC: CHSIMG 15:18
PROVIDERS: PCP Family Medicine; Visit Provider Family Medicine
DX: Z12.31 Encounter for screening mammogram for malignant neoplasm of breast (principal); R92.8 Other abnormal and inconclusive findings on diagnostic imaging of breast
CPT/HCPCS: 77063; 77067

== ENCOUNTER 2025-08-18 09:29 | Outpatient (CLI) | payer MEDICARE, SELFPAY ==
--- NOTE | ~2025-08-18 | MMUS_ITS ---
EXAMINATION: MM diagnostic ericka LT w christal, US breast LT limited INDICATION: 65-year old female; BI-RADS 0, callback from screening to evaluate a developing left breast focal asymmetry. COMPARISON: 07/20/2025 TECHNIQUE: Digital breast tomosynthesis True lateral and spot compression of the LEFT breast were obtained with computer-aided detection to assist in interpretation of the study. MAMMOGRAM FINDINGS: The breasts are almost entirely fatty. The asymmetry of concern in the left superior central persisted as a spiculated mass. LEFT BREAST ULTRASOUND FINDINGS: Targeted evaluation of the area of concern was completed. There is no sonographic correlate to the mammographic finding. An incidental finding of a small 0.5 cm lipoma is seen at 12:00, 5 cm from the nipple. IMPRESSION: Suspicious left breast mass at superior central location with no sonographic correlate. Recommend biopsy. RECOMMENDATION: Stereotactic core needle biopsy of suspicious mass in the left breast. BI-RADS 4, SUSPICIOUS Reviewed, dictated and finalized at location C. GUARD IMPRESSION: Suspicious left breast mass at superior central location with no sonographic co rrelate. Recommend biopsy. RECOMMENDATION: Stereotactic core needle biopsy of suspicious mass in the left breast. BI-RADS 4, SUSPICIOUS
--- OUTSIDE RECORDS SUMMARY | 2025-08-18 09:33 | XMS_ITS | Encounter Summary ---
Author Organization [facility] Address [address] [facility] [place] [address] Care Team Providers Care Radial Drill Press Operator Name Role Phone Dian Agustin MD Primary Care Provider [phone] Kelsi Coe MD Unavailable [phone] Reason for Visit * Reason Onset Date Comments Nurse Only 08/25/2022 Encounter Details Date Type Department Care Team (Late st Contact Info) Description 08/25/2022 Telephone [facility] General Dermatology [address] [facility] [place] [address] Barrera Woods MD [address] [facility] [address] [place] [address] Nurse Only Social History Tobacco Use Types Packs/Day Years Used Date Smoking Tobacco: Never Assessed Comments Unknown Sex and Gender Information Value Date Recorded Sex Assigned at Not on file Legal Sex Female 5:33 PM CABIN 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 N FURNISHINGS INSTALLER documented in this encounter Plan of Treatment Not on file documented as of this encounter Visit Diagnoses Not on filedocumented in this encounter Care Teams Radial Drill Press Operator Relationship Specialty Start Date End Date Dina Agustin MD [address] [place] [address] PCP - General 06/27/22 Kelsi Coe MD [address] [address] PCP - Attributed-Dre [place]IN 06/28/25 08/15/25 documented as of this encounter
--- OUTSIDE RECORDS SUMMARY | 2025-08-18 09:33 | XMS_ITS | Clinical Summary ---
Author Organization [facility] [address] [facility] Address [address] [place] [address] Care Team Providers Care Escape Wheel Tooth Cutter Name Role Phone Dina Agustin MD Primary Care Provider [phone] Aiden Karimi MD Unavailable [phone] Chris Mares MD Unavailable [phone] Priscilla Menjivar NP Unavailable [phone] Chris Mares MD Unavailable [phone] Aiden Karimi MD Unavailable [phone] Kelsi Barron MD Unavailable [phone] Allergies Active Allergy Reactions Criticality Noted Date [...] 1 tablet (10 mg total) by mouth pump installation and servicer before breakfast Active baclofen (LIORESAL) 10 mg tablet Take 1 tablet (10 mg total) by mouth 3 (three) times a day Active folic acid (FOLVITE) 1 mg tablet Take 1 tablet (1 mg total) by mouth pump installation and servicer before breakfast Only 6 days a week [...] TO FIND Take 2,000 each by mouth pump installation and servicer before breakfast Med Name: vit d 3 Active FIBER, DEXTRIN, ORAL Take by mouth pump installation and servicer before breakfast Active biotin 5 mg tablet Take by mouth pump installation and servicer before breakfast Active traMADoL (ULTRAM) 50 mg [...] Anemia 04/05/2018 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 Immunizations Immunization Administration Dates Next Due COVID-19 mRNA (U*tique) 0.3 m L (30 mcg) vaccine (12 [...] Used Date Smoking Tobacco: Former Cigarettes 1 50.9 S tarted: 1975 Passive Smoke Exposure: Past [...] on file Legal Sex Female 1:23 PM CATTLE SPRAYER Gender Identity Not on file Sexual Orientation [...] A1C 03/17/2025 09/16/2024 Covid-19 Vaccine (4 - 2024-2 6 season) 2025 08/11/2024, 12/07/2020, 11/16/2020 Influenza Vaccine (#1) 2025 , 03/25/2017, 05/20/2016, Additional history exists Fall Risk Assessment 09/30/2025 09/30/2024 eGFR 04/14/2026 04/14/2025, 03/28, 09/30/2024, Additional history exists Medical Devices Implanted Type Area Bin Tripper Operator Device Identifier Shelf Expiration Date Model / Serial / Lot Patella Right: Knee Hip Right: Hip [employer] Shell Acetabular Trident Ii Tritanium D Od48mm Hip 3 Screw Hole Cluster Sterile 702-04-48d - [id number] Implanted:Qty: 1 on 09/29/2024 at [facility] Left: Hip [employer] 07/18/2029 702-04-48D / / [id number] [employer] Insert Trident 0deg 36mm 723-00-36d - [id number] Implanted:Qty: 1 on 09/29/2024 at [facility] Left: Hip [employer] 05/08/2029 723-00-36D / / [id number] [employer] Stem Femoral Hip Collared Insignia 38.5f283iw High Offset Size 5 9027-5156 - [id number] Implanted:Qty: 1 on 09/29/2024 at [facility] Left: Hip [employer] 06/14/2029 0116-4839 / / [id number] [employer] V40 36mm Anatomic Hip +5mm Offset Taper Head Femoral [employer] Delta 6570-0-236 - [id number] Implanted:Qty: 1 on 09/29/2024 at [facility] Left: Hip [employer] 11/18/2028 6570-0-236 / / [id number] Procedures Procedure Name Priority Date/Time Associated Diagnosis Comments EGFR Routine 04/14/2025 2:20 PM CDT Anemia, unspecified type Monoclonal gammopathy HEMOGLOBIN A1C Routine 09/16/2024 5:37 PM CATTLE SPRAYER Primary osteoarthritis of left hip Type 2 diabetes mellitus without complication, unspecified whether care home insulin use (HCC) from Last 3 Months [...] was last reviewed 2021. Testing performed by: [facility], [address] [facility], [place], [address] Blood 04/14/2025 2:20 PM CDT 04/14/2025 2:51 PM CDT us Tamika Rosario NP LAB BLOOD ORDERABLES Final Result [facility] [address] [facility] [place] [address] * (ABNORMAL) Hemoglobin A1c (09/16/2024 5:37 PM CATTLE SPRAYER) Pathologist [facility] Hgb A1C 6.1(H) 4.0 - 5.6 % Estimated Average Glucose 128 mg/dL [facility] Comment: The ADA recommends reporting an estimated Average Glucose (eAG) with all Hemoglobin A1c results using the equation derived from a study of 507 normal and diabetic adults. Minority populations were underrepresented and children were not included. (Diabetes Care 31:9124-6359, 2008). The eAG is not equivalent to a fasting glucose. Blood 09/16/2024 5:37 PM CATTLE SPRAYER 09/16/2024 5:42 PM CATTLE SPRAYER us Angel Montejo MD LAB BLOOD ORDERABLES Final Result Performing Organization Address City/State/ZIP Co fl Phone Number [facility] [address] [facility] [place] [address] from Last 3 Months or Most Recently Relevant to Health Maintenance Insurance [facility] [employer] [facility] [employer] Member Subscriber Plan / Payer (Ef fective 2018-Present) Name:Amberly Thomas Heath Relation to Subscriber:Self Name:Amberly Thomas Heath Payer ID:[id number] (NAIC) Type:AETNA MEDICARE Address: [id number] [place] [id number] Advance Directives For more information, please contact: [phone] * Full Code (Latest Code Status on File) Date Activated Date Inactivated Comments 09/29/2024 4:28 PM 09/30/2024 5:39 PM Care Teams Escape Wheel Tooth Cutter Relationship Specialty Start Date End Date Dina Agustin MD PCP - General Family Medicine 04/10/22 Aiden Karimi MD [address] [place], [place] [phone] Consulting Physician Dermatology 10/10/19 Chris Mares MD [address] [place] [address] Medical Oncologist/Hematologis t Hematology and Oncology 03/26/20 Priscilla Menjivar NP [address] [place] [address] Nurse Practitioner Dermatology 04/09/23 Chris Mares MD [address] [facility] [address] Medical Oncologist/Hematologis t Hematology and Oncology 09/30/18 Aiden Karimi MD [address] [facility] [place] [address] Referring Physician Dermatology 10/08/18 Kelsi Barron MD [address] [place] [place] [address] Referring Physician Family Practice 04/07/19
--- OUTSIDE RECORDS SUMMARY | 2025-08-18 09:33 | XMS_ITS | Encounter Summary ---
Author Organization [facility] Address [address] [facility] [place] [address] Care Team Providers Care Centrex Radio Operator Name Role Phone Geovany Jalloh MD Primary Care Provider [phone] Dina Agustin MD Primary Care Provider [phone] Kelsi Coe MD Unavailable [phone] Encounter Details Date Type Department Care Team (Late st Contact Info) Description 12/02/[address] [facility] DermPath Lab [address] [facility] [place] [address] Aiden Kar[place] [address] Social History Tobacco Use Types Packs/Day Years Used Date Smoking Tobacco: Never Assessed Comments Unknown Sex and Gender Information Value Date Recorded Sex Assigned at Not on file Legal Sex Female 5:33 PM METAL FABRICATING SUPERVISOR Gender Identity Not on file Sexual Orientation Not on file documented as of this encounter Plan of Treatment Not on file documented as of this encounter Procedures Procedure Name Priority Date/Time Associated Diagnosis Comments DERMATOPATHOLOGY Routine 12/01/2019 12:0 0 AM METAL FABRICATING SUPERVISOR documented in this encounter Results * DERMATOPATHOLOGY (12/01/2019 12:00 AM METAL FABRICATING SUPERVISOR) Case Report Dermatopathology Report Case: [id number] Authorizing Provider: Aiden Karimi MD Collected: 12/01/2019 12:00 AM Ordering Location: [facility] Derm[facility] Lab Received: 12/02/2019 01:08 PM Pathologist: [...] specimen consists of 2 punch biopsies measuring [id number], bisected and submitted in cassette 1, and [id number], bisected and submitted in cassette 2. Jar [...] characteristic determined by the Dermatopathology Laboratory at [facility], directed by Dr. M. Elizabeth Ta. These tests need not be, and therefore are not, approved by the [place] Food and Drug Administration. The tests are used for clinical purposes. Billing Codes Specimen Charges Stain Charges 17302 1 81134 61147 80207 14998 24766 25920 1 1 1 1 1 1 0 4:30 PM CDT DERMATOPATHOLOGY LABORATORY Embedded Images 0 4:30 PM CDT DERMATOPATHOLOGY LABORATORY Pathology/Cytolog y TISSUE SPECIMEN FROM SKIN / Unknown 12/01/2019 12/02/2019 1:08 PM METAL FABRICATING SUPERVISOR Aiden Karimi MD LAB - PATHOLOGY/CYTOLOGY ORD ERABLES Final Result DERMATOPATHOLOGY LABORATORY [facility] - Department of Dermatology [address] [place] [address], 5th Floor Lab [address] [phone] documented in this encounter Visit Diagnoses Not on filedocumented in this encounter Care Teams Centrex Radio Operator Relationship Specialty Start Date End Date Geovany Jalloh MD [address] [place] [address] PCP - General 04/12/13 06/26/22 [place] [address] [place] [address] PCP - General 06/27/22 Kelsi Coe MD [address] [address] PCP - Attributed-Dre AUSTIN 06/28/25 08/15/25 documented as of this encounter
--- OUTSIDE RECORDS SUMMARY | 2025-08-18 09:33 | XMS_ITS | Clinical Summary ---
Author Organization [facility] Address [address] [place] [address] Care Team Providers Care Aircraft Cleaning Supervisor Name Role Phone Dina Agustin MD Primary Care Provider [phone] Allergies Active Allergy Reactions Criticality Noted Date [...] 2:23 PM 06/03/2019 4:03 PM Care Teams Aircraft Cleaning Supervisor Relationship Specialty Start Date End Date Dina Agustin MD [address] [place] [id number] PCP - General FAMILY PRACTICE 06/01/21
--- OUTSIDE RECORDS SUMMARY | 2025-08-18 09:33 | XMS_ITS | Encounter Summary ---
Author Organization [facility] Address [address] [place] [place] [address] Care Team Providers Care Credit Office Manager Name Role Phone Dina Agustin MD Primary Care Provider [phone] Kelsi Coe MD Unavailable [phone] Reason for Visit * Reason Onset Date Comments Medication Issue 09/30/2022 Encounter Details Date Type Department Care Team (Late st Contact Info) Description 09/30/2022 Telephone [facility] [address] [place] [address] Barrera Woods MD [address] [address] Medication Issue Social History Tobacco Use Types Packs/Day Years Used Date Smoking Tobacco: Never Assessed Comments Unknown Sex and Gender Information Value Date Recorded Sex Assigned at Not on file Legal Sex Female 5:33 PM COLLEGE OR UNIVERSITY FACULTY MEMBER Gender Identity Not on file Sexual Orientation [...] I also suggested she sign up for Belly Ballot for easier communication with our office. EGE OR UNIVERSITY FACULTY MEMBER * Telephone Encounter - Zoë Simmons PA - 10/03/2022 11:15 AM COLLEGE OR UNIVERSITY FACULTY MEMBER I spoke to patient She said she completed her portion for the application for Tremfya and paper mailed as well as faxed to us She spoke to Jonas last week and says jonas told her she has not received it. I asked her to email them to me and once I get them I will update her EGE OR UNIVERSITY FACULTY MEMBER * Telephone Encounter - Amy Alatorre - 09/30/2022 1:02 PM CST Pt wants update on medication paperwork for Tremfya. EGE OR UNIVERSITY FACULTY MEMBER documented in this encounter Plan of Treatment Not on file documented as of this encounter Visit Diagnoses Not on filedocumented in this encounter Care Teams Credit Office Manager Relationship Specialty Start Date End Date Dina Agustin MD [address] [place] [address] PCP - General 06/27/22 Kelsi Coe MD [address] [address] PCP - Attributed-Dre [place] 06/28/25 08/15/25 documented as of this encounter
--- OUTSIDE RECORDS SUMMARY | 2025-08-18 09:33 | XMS_ITS | Clinical Summary ---
Author Organization [facility] Address [address] [place] [address] Phone Care Team Providers Care Commanding Officer Traffic Division Name Role Phone Unavailable Primary Care Provider Unavailabl e Encounters Date Type Department Care Team Description 08/15/2025 External Device Data [facility] ABSTRACTION Provider, Abstract 07/19/2025 External Device Data [facility] ABSTRACTION Provider, [...] (1 - 1-dose 75+ series) 2034 [facility]
--- OUTSIDE RECORDS SUMMARY | 2025-08-18 09:33 | XMS_ITS | Clinical Summary ---
Author Organization [facility] [employer] Address [address] [place] [address] Care Team Providers Care Management Trainee Marketing Name Role Phone Dina Agustin MD Primary Care Provider [phone] Source Comments [facility] [employer],non-owned Affiliates and Associated Physician Practices is amultiple site organization consisting of ambulatory clinics and hospital sitesin [place], [place], [place] and [place]. This disclosure is being madepursuant to the Care Everywhere program and may not contain all information available regarding this patient. Last updated 18.[facility] [employer] Allergies Active Allergy Reactions Criticality Noted Date Comments Nsaids Unknown 04/07/2018 Penicillins Unknown 04/19/2013 Sulfa Drugs Other Medium 04/03/2018 Medications * Be aware that medications may not be up to date on this document. Alwaysverify current medications with the patient. Blood Glucose Monitoring Suppl (ONE TOUCH ULTRA 2) w/Device KIT Use 1 strip as instructed as needed 2 Active HYDROcodone-ac etaminophen ([place]) 7.5-325 MG tablet Take 1 (one) tablet [...] on file Legal Sex Female 5:33 PM WOOD ROOM SUPERVISOR Gender Identity Not on file Sexual [...] 50+ (1 of 1 - PCV) 2009 Respiratory Syncytial Virus (RSV) Vaccine Pt: or over 60 yrs (1 - Risk 50-74 years 1-dose series) 2009 ZOSTER VACCINE (1 of 2) 2009 COVID-19 VACCINE (3 - Pfizer risk series) [...] complete this topic Insurance [employer] Care Teams Management Trainee Marketing Relationship Specialty Start Date End Date Dina Agustin MD [address] [place], [place] [id number] PCP - General 06/27/22
[2025-08-18 11:01] LABS: Hematocrit 42.7 % (35.0-42.0); Hemoglobin 13.7 g/dL (11.7-13.8); Mean Corpuscular HGB Conc 32.1 g/dL (32-36); Mean Corpuscular Hemoglobin 34.3 pg (27.0-31.0); Mean Corpuscular Volume 106.8 fL (78.0-102.0); Platelet Count Result 193 K/mm3 (150-420); Red Blood Count 4.00 M/mm3 (4.20-5.40); White Blood Count 8.1 K/mm3 (4.8-10.8)
[2025-08-18 11:26] LABS: Hemoglobin A1C 5.8 % (<5.7)
[2025-08-18 11:28] LABS: MALB Creatinine Ratio 5.9 mg/g (0-30)
[2025-08-18 11:33] LABS: Alanine Aminotransferase 31 U/L (6-35); Albumin Level 4.6 g/dL (3.5-5.1); Alkaline Phosphatase 81 U/L (38-126); Anion Gap 11 mmol/L (4-12); Aspartate Amino Transferase 38 U/L (14-36); Bilirubin,Total 0.9 mg/dL (0.2-1.3); Blood Urea Nitrogen 13 mg/dL (7-17); CRP < 0.5 mg/dL (<1.0); Calcium 10.0 mg/dL (8.4-10.2); Carbon Dioxide 31 mmol/L (22-30); Chloride 102 mmol/L (98-107); Cholesterol 154 mg/dL (0-200); Estimated Glomerular Filt Rate > 60; Glucose 99 mg/dL (65-110); HDL Direct 67 mg/dL; Osmolality Calculated 298 mOsm/kg (285-295); Potassium 4.9 mmol/L (3.4-5.0); Sodium 144 mmol/L (137-145); Total Protein 7.0 g/dL (6.3-8.2); Triglycerides 234 mg/dL (<150)
[2025-08-18 12:01] LABS: Thyroid Stimulating Hormone Reflex 0.076 uIU/mL (0.465-4.68)
[2025-08-18 12:45] LABS: Free T4 Free Thyroxine Reflex 1.17 ng/dL (0.78-2.19)
== END 2025-08-18 09:30 | disposition home or self-care (01) ==
PROVIDERS: PCP Family Medicine
DX: E78.2 Mixed hyperlipidemia (principal); E11.9 Type 2 diabetes mellitus without complications; E55.9 Vitamin D deficiency, unspecified; E03.9 Hypothyroidism, unspecified; R92.8 Other abnormal and inconclusive findings on diagnostic imaging of breast; L40.50 Arthropathic psoriasis, unspecified
CPT/HCPCS: 36415; 76642; 77061; 77065; 80053; 80061; 82043; 82306; 83036; 84439; 84443; 85027; 85652; 86140; G0279

== ENCOUNTER 2025-09-26 12:53 | Outpatient (CLI) | payer MEDICARE, SELFPAY ==
--- OUTSIDE RECORDS SUMMARY | 2025-09-26 13:10 | XMS_ITS | Clinical Summary ---
Author Organization [facility] Address [address] [place] [address] Care Team Providers Care Developer Analyst Name Role Phone Dina Agustin MD Primary Care Provider [phone] Allergies Active Allergy Reactions Criticality Noted Date [...] 2:23 PM 06/03/2019 4:03 PM Care Teams Developer Analyst Relationship Specialty Start Date End Date Dina Agustin MD [address] [place] [phone] PCP - General FAMILY PRACTICE 06/01/21
--- OUTSIDE RECORDS SUMMARY | 2025-09-26 13:10 | XMS_ITS | Clinical Summary ---
Author Organization [facility] Address [address] [place] [address] Care Team Providers Care Brusher Warp Name Role Phone Dina Agustin MD Primary Care Provider [phone] Source Comments [facility],non-owned Affiliates and Associated Physician Practices is amultiple site organization consisting of ambulatory clinics and hospital sitesin [place], [place], [place] and [place]. This disclosure is being madepursuant to the Care Everywhere program and may not contain all information available regarding this patient. Last updated 18.[facility] Allergies Active Allergy Reactions Criticality Noted Date Comments Nsaids Unknown 04/07/2018 Penicillins Unknown 04/19/2013 Sulfa Drugs Other Medium 04/03/2018 Medications * Be aware that medications may not be up to date on this document. Alwaysverify current medications with the patient. 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
--- OUTSIDE RECORDS SUMMARY | 2025-09-26 13:10 | XMS_ITS | Data Portability ---
Author Organization [facility], [address] [place] [address] [place] ([place]) Address [address] 4th [place] [address] Care Team Providers Care Intellectual Property Lawyer Name Role Phone MARY KATE HOLLOWAY Primary Care Provider [phone] Assessment Encounter Date Assessment Date Assessment LastModified [...] includes plain films obtained 06/03/2023 at the [facility] by Dr. Kam that I independently reviewed and interpreted. I do agree with the findings of severe arthritis of the left hip. She also has satisfactory appearance of a cementless right total hip arthroplasty. She tells me that this was performed by Dr. Dyson at [facility] in [place], [place]. She is well satisfied with the [...] takes hydrocodone which is provided by her cane stripper, Dr. Mary Kate Lopez. She lives in [place], [place]. She has not tried any formal physical therapy. She did visit with another surgeon at [place] that told her that the left knee [...] hip arthroplasty performed by Dr. Dyson at [place] in [place], [place]. 3.) History of similar left total knee arthroplasty performed byDr. Dyson at [place] in [place], [place]. She is not satisfied with the left knee and does have some psoriasis about the surgical incision site but no clear-cut evidence for infection, loosening, or other pathology clinically. I do not have any radiographs of the left knee at this time. However, she has been told by another surgeon in [place] that it likely needs to be revised [...] is 225 pounds. 8.) She lives in [place], [place]. PLAN: We discussed the natural history [...] loss as well as a trial of ngik-rwn-pltbgfi supplements. I have recommended a trial of yksg-fbq-trvrknw supplements including glucosamine/chondr oitin, ASU, vitamin E, [...] on this date of service including both qaxk-mz-xyny and cvj-cncr-kn-face time excluding any separately reportable services. [email or web address] Not available 01/06/2025 10:10:25 Plan of Treatment Reminders Order Date Submit Date Provider Last Modified By Organization Details Last Modified Time Details Appointments Establish ed Patient 15.EST 2025 03:00P M Dr. Deion Kam Not available Not available Not available Lab CBC 2023 024 [facility], [address] [place] [address], [id number], 04/08/2024 14:10:41 CMP, serum or plasma 2023 024 [facility], [address] [place] [address], [id number], 04/08/2024 14:10:41 ESR (erythroc yte sedimenta tion rate), blood 2023 024 [id number] [facility], [address] [place] [address], [id number], 04/12/2024 16:38:25 unlisted lab - CRP ([facility] only) 2023 024 [id number] [facility], [address] [place] [address], [id number], 04/12/2024 16:38:25 Referral None recorded. Procedures None recorded. Surgeries None recorded. Imaging None recorded. Medication Orders Depo-Medr ol 80 mg/mL suspensio n for injection 2023 024 [id number], [address] [place], [address], 01/05/2025 17:09:38 Patient TargetsNo targets recorded. Patient InstructionsNo instructions recorded. Reason for Referral None Reported. Results Created Date Observation Date Name Description Value Unit Range Abnormal Flag Note LastModifiedBy Organization Detail LastModifiedTime Result Notes None recorded. Problems Name Problem SNOMED Code Status Onset Date Resolution Date Notes Provider Name and Address Organization Details Recorded Time Osteoarthri tis of left hip joint 5789249468226 08 Active 2023 Kirill Gutierrez[place], [place] - [facility] 15:24:08 Pain of left knee joint 1862045536436 07 Active 2023 Hernan Lorenzo MD [address], [place], [address], [facility] 4 12:19:39 Osteoarthri tis of right knee joint 2803112135500 00 Active 2023 Hernan Lorenzo MD [address], [place], [address], [facility] 4 12:19:48 Morbid obesity 249169871 Active 2023 Hernan Lorenzo MD [address], [place], [address], [facility] 4 12:19:53 Lumbar radiculopat hy 535940153 Active 2023 Hernan Lorenzo MD [address], [place], [address], [facility] 4 12:20:09 Psoriatic arthritis 086106883 Active 2023 Kevin Aldridge [facility], [facility] 4 16:50:54 Trochanteri c bursitis of left hip 6977346964233 03 Active 2023 Hernan Lorenzo MD [address], [place], [address], [facility] 4 12:34:56 Plaque psoriasis 540601602 Active 2023 Deion Kam MD [address], [place], [address], [facility] 4 16:10:13 Subacromial bursitis of right shoulder 3456979810036 109 Active 2023 Deion Kam MD [address], [place], [address], [facility] 4 16:11:52 Generalized osteoarthri tis 372077225 Active 2024 Deion Kam MD [address] [place] [address], [address] [place] [address] 5 17:32:48 Problem Notes None recorded. Medical Equipment None Reported. Allergies Allergen ID Allergen Name Allergen Category Reaction Reaction Severity Criticality Documentation Date Start Date Code Code System Note Provider Name and Address Organization Details Recorded Time 7806731 Non-stero idal anti-infl ammatory agent (substanc e) medicatio n Not available Not available Not available 10/28/20232022 43772 5008 SNOMED Not Available [facility] 4 03:57:12 5926331 Product containin g penicilli n (product) medicatio n Not available Not available Not available 10/28/20232022 39073 8001 SNOMED Not Available [facility] 4 03:57:12 Medications Name Sig Start Date [...] (BMI) Body weight Heart rate Oxygen saturation Systolic And Diastolic Provider Name and Address Organization Details Last Updated DateTime 160.02 cm 42.9 kg/m2 168325. 07 g 100 /min 97 % 142/86 mm[Hg] Zoi Dunse [facility] 17:06:24 Date Recorded Body height Body mass index (BMI) Body weight Body temperature Provider Name and Address Organization Details Last Updated DateTime 02/19/2024 160.02 cm 45.9 kg/m2 129425.42 g 97.1 [degF] Vijay Dumonte [facility] 02/19/2024 10:30:19 Date Recorded Body height Body mass index (BMI) Body weight Heart rate Oxygen saturation Pain severity - 0-10 verbal numeric rating [Score] - Reported Systolic And Diastolic Provider Name and Address Organization Details Last Updated DateTime 4 160.02 cm 46.2 kg/m2 099480. 61 g 81 /min 97 % 8 144/86 mm[Hg] Kevin Aldridge [facility] 4 15:34:55 Date Recorded Body height Body mass index (BMI) Body weight Heart rate Oxygen saturation Pain severity - 0-10 verbal numeric rating [Score] - Reported Systolic And Diastolic Provider Name and Address Organization Details Last Updated DateTime 4 160.02 cm 45 kg/m2 219961. 74 g 85 /min 94 % 8 126/84 mm[Hg] Janet Jackson [facility] 4 15:38:00 Social History Question Answer Notes LastModified by Organizat ion Details LastModified Time Tobacco Smoking Status Former Smoker [facility] 07/07/2024 15:40:30 When Did You Quit Smoking? 2014 [email or web address] Information not available 07/07/2024 Sex: Unknown Functional Status None recorded. Mental Status None recorded. Family History Nothing Reported. Medical History No medical history recorded. Gynecological HistoryNo gynecological history recorded. Obstetrics History GPAL:G 0 P 0 0 0 0 Past Encounters Encounter ID Performer Location Encounter Start Date Encounter Closed Date Diagnosis/Indication Diagnosis SNOMED-CT Code Diagnosis ICD10 Code Diagnosis IMO Codes Diagnosis Note [id number] Hernan Lorenzo MD [facility] [address] [place] [address] 02/19/2024 09:18:56 02/23/2024 13:42:49 Osteoarthritis of left hip joint 8569790183 19068 M16.12 History of total replacement of right hip joint 7060181051 34302 Z96.641 History of left total knee replacement 2876883997 959684 Z96.652 Pain of le ft knee joint 9459088733 01788 M25.562 Osteoarthr itis of right knee joint 7599003593 16968 M17.11 Morbid obesity 517390652 E66.01 Lumbar radiculopathy 128 550812 M54.16 Psoriatic arthritis 1563 84165 L40.50 Trochanter ic bursitis of left hip 5466657169 42771 M70.62 [id number] Deion M. Lenardo, MD [facility] [place] [address] [place] [address] 03/10/2024 15:02:16 03/14/2024 12:23:18 Osteoarthritis of left hip joint 0177039041 37943 M16.12 Psoriatic arthritis 1563 17715 L40.50 Lumbar radiculopathy 128 798778 M54.16 alf methotrexate user 0257298164 00 Z79.631 [id number] Deion Kam MD [facility] [place] [address] [place] [address] 07/07/2024 15:26:36 07/12/2024 09:32:01 Subacromial bursitis of right shoulder 1680184381 172146 M75.51 Psoriatic arthritis 1563 61349 L40.50 Osteoarthr itis of left hip joint 3417167658 49226 M16.12 Plaque psoriasis 4102513 09 L40.0 [id number] Deion Kam MD [facility] [place] [address] [place] [address] 01/05/2025 16:30:28 01/09/2025 15:41:24 Psoriatic arthritis 349580350 L40.50 Plaque psoriasis 0890345 09 L40.0 Generalize d osteoarthritis 040165297 M15.9 1453 Health Concerns Section Related Observation LastModified by Organization Detai ls LastModified Time None Recorded Concern Status LastModified by Organization Details LastModified Time None Recorded Advance Directives Directive None Recorded Payers Insurance Date Sequence Insurance Name Policy Number Policy Condon Covered Member ID Condon Member ID Guarantor Name 01/09/2025 1 [employer] (MEDICARE REPLACEMENT/ ADVANTAGE - PPO) [id number] Amberly Thomas [id number] Amberly Thomas Notes Date Note Type Note [...] methotrexate, 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 She reports overall her skin is doing [...] trying to watch her diet.praveen Kam MD [address] [place] [address], [phone], [facility] 03/15/2024 23:13:01 07/07/2024 text/html The patient is a 64-year-old female with a history of psoriatic arthritis, plaque psoriasis and end-stage osteoarthritis of the left hip, who is here today for a followup visit. She was seen by Orthopedics, Dr. Barbosa, at [facility] and did have a left hip trochanteric bursa cortisone injection. She is to follow up with her orthopedic surgeon regarding the possibility of a left hip replacement. Today, she reports continuing on her methotrexate therapy along with her Tremfya from her drying equipment operator. She has had no outbreaks of her [...] or bleeding from the nares or gums.adali Kam MD [facility] [address], [address], [facility] 07/11/2024 20:13:51 01/05/2025 text/html The patient [...] injection site reactions.adali Kam MD [address] [place] [address], [address], [facility] 01/08/2025 11:07:52 OBGyn Episode No OBEpisode recorded.
--- OUTSIDE RECORDS SUMMARY | 2025-09-26 13:10 | XMS_ITS | Clinical Summary ---
Author Organization [facility] Address [address] [place] [address] Phone Care Team Providers Care Inletter Name Role Phone Unavailable Primary Care Provider Unavailabl e Encounters Date Type Department Care Team Description 09/19/2025 External Device Data [facility] ABSTRACTION Provider, Abstract 08/15/2025 External Device Data [facility] ABSTRACTION Provider, [...] (1 - 1-dose 75+ series) 2034 [facility]
--- OUTSIDE RECORDS SUMMARY | 2025-09-26 13:10 | XMS_ITS | Encounter Summary ---
Author Organization [facility] Address [address] [place] [address] Care Team Providers Care Audio Visual Aide Name Role Phone Geovany Jalloh MD Primary Care Provider [phone] Dina Agustin MD Primary Care Provider [phone] Klesi Coe MD Unavailable [phone] Encounter Details Date Type Department Care Team (Late st Contact Info) Description 12/02/2019 Lab Requisition [facility] [address] [place] [address] [place] [address] Social History Tobacco Use Types Packs/Day Years Used Date Smoking Tobacco: Never Assessed Comments Unknown Sex and Gender Information Value Date Recorded Sex Assigned at Not on file Legal Sex Female 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 Gender Identity Not on file Sexual Orientation Not on file documented as of this encounter Plan of Treatment Not on file documented as of this encounter Procedures Procedure Name Priority Date/Time Associated Diagnosis Comments DERMATOPATHOLOGY Routine 12/01/2019 12:0 0 AM TRACK LAMINATING MACHINE TENDER documented in this encounter Results * DERMATOPATHOLOGY (12/01/2019 12:00 AM TRACK LAMINATING MACHINE TENDER) Case Report Dermatopathology Report Case: [id number] Authorizing Provider: Aiden Karimi MD Collected: 12/01/2019 12:00 AM Ordering Location: [facility] Received: 12/02/2019 01:08 PM Pathologist: [...] specimen consists of 2 punch biopsies measuring 6x1g6jy, bisected and submitted in cassette 1, and 1y3k8is, bisected and submitted in cassette 2. Jar [...] characteristic determined by the Dermatopathology Laboratory at [facility], directed by Dr. M. Elizabeth Ta. These tests need not be, and therefore are not, approved by the [place] Food and Drug Administration. The tests are used for clinical purposes. Billing Codes Specimen Charges Stain Charges 33493 1 77656 13076 04686 84381 89846 18499 1 1 1 1 1 1 0 4:30 PM CDT DERMATOPATHOLOGY LABORATORY Embedded Images 0 4:30 PM CDT DERMATOPATHOLOGY LABORATORY Pathology/Cytolog y TISSUE SPECIMEN FROM SKIN / Unknown 12/01/2019 12/02/2019 1:08 PM TRACK LAMINATING MACHINE TENDER Aiden Karimi MD LAB - PATHOLOGY/CYTOLOGY ORD ERABLES Final Result DERMATOPATHOLOGY LABORATORY [facility] - Department of Dermatology [address] [place] [address], 5th Floor Lab [address] [phone] documented in this encounter Visit Diagnoses Not on filedocumented in this encounter Care Teams Audio Visual Aide Relationship Specialty Start Date End Date Geovany Jalloh MD [address] [place] [address] PCP - General 04/12/13 06/26/22 [place] [address] [place] [address] PCP - General 06/27/22 Kelsi Coe MD [address] [address] PCP - Attributed-Dre [place] 06/28/25 08/15/25 documented as of this encounter
--- OUTSIDE RECORDS SUMMARY | 2025-09-26 13:10 | XMS_ITS | Encounter Summary ---
Author Organization [facility] Address [address] [place] [address] Care Team Providers Care Cut Off Machine Operator Name Role Phone Dina Agustin MD Primary Care Provider [phone] Kelsi Coe MD Unavailable [phone] Reason for Visit * Reason Onset Date Comments Nurse Only 08/25/2022 Encounter Details Date Type Department Care Team (Late st Contact Info) Description 08/25/2022 Telephone [facility] Dermatology [address] [facility] [place] [address] Barrera Woods MD [address] [facility] [address] [place] [address] Nurse Only Social History Tobacco Use Types Packs/Day Years Used Date Smoking Tobacco: Never Assessed Comments Unknown Sex and Gender Information Value Date Recorded Sex Assigned at Not on file 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 ESALE ACCOUNT MANAGER documented in this encounter Plan of Treatment Not on file documented as of this encounter Visit Diagnoses Not on filedocumented in this encounter Care Teams Cut Off Machine Operator Relationship Specialty Start Date End Date Dina Agustin MD [address] [place] [address] PCP - General 06/27/22 Kelsi Coe MD [address] [address] PCP - Attributed-Dre [place] 06/28/25 08/15/25 documented as of this encounter
--- OUTSIDE RECORDS SUMMARY | 2025-09-26 13:10 | XMS_ITS | Encounter Summary ---
Author Organization [facility] Address [address] [facility] [place] [address] Care Team Providers Care Sulfide Head Operator Name Role Phone Dina Agustin MD Primary Care Provider [phone] Kelsi Coe MD Unavailable [phone] Reason for Visit * Reason Onset Date Comments Medication Issue 09/30/2022 Encounter Details Date Type Department Care Team (Late st Contact Info) Description 09/30/2022 Telephone [facility] [address] [place] [address] Barrera Woods MD [address] [address] Medication Issue Social History Tobacco Use Types Packs/Day Years Used Date Smoking Tobacco: Never Assessed Comments Unknown Sex and Gender Information Value Date Recorded Sex Assigned at Not on file Legal Sex Female 5:33 PM 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 ISH LANGUAGE LEARNER TEACHER * Telephone Encounter - Zoë Simmons PA - 10/03/2022 11:15 AM ENGLISH LANGUAGE LEARNER TEACHER I spoke to patient She said she completed her portion for the application for Tremfya and paper mailed as well as faxed to us She spoke to Jonas last week and says jonas told her she has not received it. I asked her to email them to me and once I get them I will update her ISH LANGUAGE LEARNER TEACHER * Telephone Encounter - Amy Alatorre - 09/30/2022 1:02 PM CST Pt wants update on medication paperwork for Tremfya. ISH LANGUAGE LEARNER TEACHER documented in this encounter Plan of Treatment Not on file documented as of this encounter Visit Diagnoses Not on filedocumented in this encounter Care Teams Sulfide Head Operator Relationship Specialty Start Date End Date Dina Agustin MD [address] [place] [address] PCP - General 06/27/22 Kelsi Coe MD [address] [address] PCP - Attributed-Dre [place] 06/28/25 08/15/25 documented as of this encounter
--- OUTSIDE RECORDS SUMMARY | 2025-09-26 13:10 | XMS_ITS | Clinical Summary ---
Author Organization [facility] [address] [facility] Address [address] [place] [address] Care Team Providers Care Customs Compliance Director Name Role Phone Dina Agustin MD Primary Care Provider [phone] Aiden Karimi MD Unavailable [phone] Chris Mares MD Unavailable [phone] Priscilla Menjivar NP Unavailable [phone] Chris Mares MD Unavailable [phone] Aiden Karimi MD Unavailable [phone] Kelsi Barron MD Unavailable [phone] Allergies Active Allergy Reactions Criticality Noted Date [...] 1 tablet (10 mg total) by mouth case coordinator before breakfast Active baclofen (LIORESAL) 10 mg tablet Take 1 tablet (10 mg total) by mouth 3 (three) times a day Active folic acid (FOLVITE) 1 mg tablet Take 1 tablet (1 mg total) by mouth case coordinator before breakfast Only 6 days a week [...] TO FIND Take 2,000 each by mouth case coordinator before breakfast Med Name: vit d 3 Active FIBER, DEXTRIN, ORAL Take by mouth case coordinator before breakfast Active biotin 5 mg tablet Take by mouth case coordinator before breakfast Active traMADoL (ULTRAM) 50 mg [...] Immunization Administration Dates Next Due COVID-19 mRNA (Lumus) 0.3 m L (30 mcg) vaccine (12 [...] Used Date Smoking Tobacco: Former Cigarettes 1 [address] tarted: 1975 Passive Smoke Exposure: Past [...] on file Legal Sex Female 1:23 PM PODODERMATOLOGIST Gender Identity Not on file Sexual Orientation [...] Health Maintenance Due Date Last Done Comments Breast Cancer Screening-Mammogram 1959 Colon Cancer Screening-Colonoscopy 1959 Depression Screening 1959 Hepatitis C Screening 1959 Osteoporosis Screening-Bone Density Scan 1959 Hepatitis B Screening 1977 Pneumococcal vaccine 65+ (1 of 2 - PCV) 1978 Zoster Vaccine (1 of 2) 12/09/2017 10/14/19 18, 03/25/2017, 05/20/2016 DTaP/Tdap/Td Vaccine (2 - Td or Tdap) 06/01/2019 06/01/2009, 12/10/1998 Well Visit 65+ 01/18/2024 Covid-19 Vaccine (4 - 2024-2 6 season) 2025 08/11/2024, 12/07/2020, 11/16/2020 Influenza Vaccine (#1) 2025 , 03/25/2017, 05/20/2016, Additional history exists Fall Risk Assessment 09/30/2025 09/30/2024 Medical Devices Implanted Type Area Protective Signal Installer Device Identifier Shelf Expiration Date Model / Serial / Lot Patella Right: Knee Hip Right: Hip [employer] Shell Acetabular Trident Ii Tritanium D Od48mm Hip 3 Screw Hole Cluster Sterile 702-04-48d - [id number] Implanted:Qty: 1 on 09/29/2024 at [facility] Left: Hip [employer] 07/18/2029 702-04-48D / / [id number] [employer] Insert Trident 0deg 36mm 723-00-36d - [id number] Implanted:Qty: 1 on 09/29/2024 at [facility] Left: Hip [employer] 05/08/2029 723-00-36D / / [id number] [employer] Stem Femoral Hip Collared Insignia [id number] High Offset Size 5 [id number] - [id number] Implanted:Qty: 1 on 09/29/2024 at [facility] Left: Hip [employer] 06/14/2029 [id number] / / [id number] [employer] V40 36mm Anatomic Hip +5mm Offset Taper Head Femoral [employer] Delta 6570-0-236 - [id number] Implanted:Qty: 1 on 09/29/2024 at [facility] Left: Hip [employer] 11/18/2028 6570-0-236 / / [id number] Insurance [facility] [employer] [facility] [employer] Advance Directives For more information, please contact: [phone] * Full Code (Latest Code Status on File) Date Activated Date Inactivated Comments 09/29/2024 4:28 PM 09/30/2024 5:39 PM Care Teams Customs Compliance Director Relationship Specialty Start Date End Date Dina Agustin MD PCP - General Family Medicine 04/10/22 Aiden Karimi MD [address] [facility] [place] [address] Consulting Physician Dermatology 10/10/19 Chris Mares MD [address] [place] [address] Medical Oncologist/Hematologis t Hematology and Oncology 03/26/20 Priscilla Menjivar NP [address] [place] [id number] Nurse Practitioner Dermatology 04/09/23 Chris Mares MD [address] [place] [address] Medical Oncologist/Hematologis t Hematology and Oncology 09/30/18 Aiden Karimi MD [address] [place] [address] Referring Physician Dermatology 10/08/18 Kelsi Barron MD [address] [place] [address] Referring Physician Family Practice 04/07/19
[2025-09-26 13:48] LABS: Alanine Aminotransferase 26 U/L (6-35); Albumin Level 4.7 g/dL (3.5-5.1); Alkaline Phosphatase 77 U/L (38-126); Anion Gap 11 mmol/L (4-12); Aspartate Amino Transferase 33 U/L (14-36); Bilirubin,Total 0.7 mg/dL (0.2-1.3); Blood Urea Nitrogen 16 mg/dL (7-17); Calcium 9.7 mg/dL (8.4-10.2); Carbon Dioxide 27 mmol/L (22-30); Chloride 107 mmol/L (98-107); Estimated Glomerular Filt Rate > 60; Glucose 114 mg/dL (65-110); Osmolality Calculated 302 mOsm/kg (285-295); Potassium 4.3 mmol/L (3.4-5.0); Sodium 145 mmol/L (137-145); Total Protein 7.0 g/dL (6.3-8.2)
[2025-09-26 14:18] LABS: Thyroid Stimulating Hormone Reflex 0.206 uIU/mL (0.465-4.68)
[2025-09-26 14:51] LABS: Free T4 Free Thyroxine Reflex 0.85 ng/dL (0.78-2.19)
[2025-09-26 14:53] LABS: Vitamin B12 866.0 pg/mL (239-931)
== END 2025-09-26 12:54 | disposition home or self-care (01) ==
LOC: CHSLAB 12:54
DX: E78.2 Mixed hyperlipidemia (principal); D64.9 Anemia, unspecified; E03.9 Hypothyroidism, unspecified
CPT/HCPCS: 36415; 80053; 82607; 82746; 84439; 84443